=== PATIENT | female | born 1970 | race Caucasian/White ===

== ENCOUNTER 2016-10-05 21:40 | Emergency (ER) | payer BC ==
--- NOTE | 2016-10-05 22:32 | EDM.PDOC ---
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 She felt shaky she felt lightheaded. She had some chest pain that she thinks was related to low blood sugar. She candied bar and now she feels improved. She has had prior episodes in the past associated with blood sugars in the 50s. She has a relative that is a diabetic and has access to home blood sugar monitoring. She refuses fingerstick blood sugar checked today. She's starting to feel quite a bit better. - Related Data Allergies/ADRs: Allergies Allergy/AdvReac Type Severity Reaction Status Date / Time influenza virus vaccine, Allergy Other Verified 03/17/15 12:26 specific [influenza virus vacc,specific] promethazine HCl Allergy Seizure Verified 03/17/15 12:26 [From Phenergan] shellfish derived Allergy Itching Verified 10/05/16 21:44 IV Contrast from years ago Allergy Intermediate Cannot Uncoded 03/17/15 12:26 Remember Tomato Allergy Unknown Difficulty Uncoded 03/17/15 12:26 Breathing Home Meds: Home Meds Levothyroxine Sodium 0.25 gm MC DAILY 10/05/16 [History] Omeprazole 40 mg PO DAILY 10/05/16 [History] Past Medical History - Past Health History Medical/Surgical History: Denies Medical/Surgical History HEENT History: Reports: None Cardiovascular History: Reports: None Respiratory History: Reports: Other (see below) Other Respiratory History: exercise induced breathing problems Gastrointestinal History: Reports: GERD Genitourinary History: Reports: None 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 Musculoskeletal History: Reports: Fibromyalgia Neurological History: Reports: None Psychiatric History: Reports: None Endocrine/Metabolic History: Reports: Hyperthyroidism, Hypothyroidism Other Endocrine/Metabolic History: Goiter Hematologic History: Reports: None Immunologic History: Reports: None Oncologic (Cancer) History: Reports: None Dermatologic History: Reports: None - Infectious Disease History Infectious Disease History: Reports: Chicken pox - Past Surgical History HEENT Surgical History: Reports: None GI Surgical History: Reports: Cholecystectomy Female Surgical History: Reports: D&C Social & Family History - Family History Cardiac: Reports: MT - Tobacco Use Smoking Status *Q: Never Smoker Second Hand Smoke Exposure: No - Caffeine Use Caffeine Use: Reports: Soda Other Caffeine Use: rare - Alcohol Use Days Per Week of Alcohol Use: 0 Number of Drinks Per Day: 0 Total Drinks Per Week: 0 - Recreational Drug Use Recreational Drug Use: No Drug Use in Last 12 Months: No ED ROS GENERAL - Review of Systems Review Of Systems: See Below Constitutional: Denies: fever, chills Respiratory: Reports: shortness of breath (Shortness of breath and shakiness now resolved) Cardiovascular: Reports: Chest pain (Chest pain was central but is now resolved) GI/Abdominal: Denies: Abdominal pain ED EXAM, GENERAL - Physical Exam Exam: See Below (She is) Free Text/Narrative:: She is alert with nontoxic appearance she is cooperative her speech is normal she is anxious appearing lungs are clear to auscultation heart regular rate and rhythm without murmur abdomen is nontender normal capillary refill in her feet. Electrocardiogram 12-lead shows normal sinus rhythm. There are no ST segment changes suggestive of myocardial ischemia. She has nonspecific ST changes noted in V2 and V3. Course - Vital Signs Last Recorded V/S: Last Vital Signs Temp 97.5 F 10/06/16 01:53 Pulse 64 10/06/16 01:53 Resp 17 10/06/16 01:53 BP 120/61 10/06/16 01:53 Pulse Ox 95 10/06/16 01:53 - Orders/Labs/Meds Orders: Active Orders 24 hr Category Date Time Status EKG 12 Lead [EKG Documentation Completion] [RC] STAT Care 10/05/16 21:53 Active Labs: Laboratory Tests 10/05/16 10/05/16 10/05/16 Range/Units 21:56 21:56 21:56 WBC 11.36 H (4.0-11.0) K/uL RBC 4.95 (4.30-5.90) M/uL Hgb 14.3 (12.0-16.0) g/dL Hct 42.2 (36.0-46.0) % MCV 85.3 (80.0-98.0) fL MCH 28.9 (27.0-32.0) pg MCHC 33.9 (31.0-37.0) g/dL RDW Std Deviation 39.6 (28.0-62.0) fl RDW Coeff of Jazzy 13 (11.0-15.0) % Plt Count 357 (150-400) K/uL MPV 9.90 (7.40-12.00) fL Neut % (Auto) 54.7 (48.0-80.0) % Lymph % (Auto) 32.8 (16.0-40.0) % Chase % (Auto) 10.0 (0.0-15.0) % Eos % (Auto) 2.0 (0.0-7.0) % Baso % (Auto) 0.5 (0.0-1.5) % Neut # 6.2 H (1.4-5.7) K/uL Lymph # 3.7 H (0.6-2.4) K/uL Chase # 1.1 H (0.0-0.8) K/uL Eos # 0.2 (0.0-0.7) K/uL Baso # 0.1 (0.0-0.1) K/uL Nucleated RBC % 0.0 /100WBC Nucleated RBCs # 0 K/uL Sodium (136-146) mmol/L Potassium (3.5-5.1) mmol/L Chloride (98-110) mmol/L Carbon Dioxide (21-31) mmol/L BUN (6.0-23.0) mg/dL Creatinine (0.6-1.5) mg/dL Est Cr Clr Drug Dosing mL/min Estimated GFR (MDRD) ml/min Glucose (60-110) mg/dL Calcium (8.8-10.8) mg/dL Total Bilirubin (0.1-1.5) mg/dL AST (5-40) IU/L ALT (8-54) IU/L Alkaline Phosphatase (40-150) Troponin I < 0.10 (0.0-0.29) NG/ML Total Protein (6.0-8.0) g/dL Albumin (3.5-5.0) g/dL Globulin (2.0-3.5) g/dL Albumin/Globulin Ratio (1.3-2.8) HCG, Qual NEGATIVE (NEG) Urine Color Urine Appearance Urine pH (5.0-8.0) Ur Specific Wylie (1.001-1.035) Urine Protein (NEGATIVE) mg/dL Urine Glucose (UA) (NEGATIVE) mg/dL Urine Ketones (NEGATIVE) mg/dL Urine Occult Blood (NEGATIVE) Urine Nitrite (NEGATIVE) Urine Bilirubin (NEGATIVE) Urine Urobilinogen (<2.0) EU/dL Ur Leukocyte Esterase (NEGATIVE) Urine RBC (0-2/HPF) Urine WBC (0-5/HPF) Ur Epithelial Cells (NONE-FEW) Urine Bacteria (NEGATIVE) 10/05/16 10/05/16 10/06/16 Range/Units 21:59 22:28 03:09 WBC (4.0-11.0) K/uL RBC (4.30-5.90) M/uL Hgb (12.0-16.0) g/dL Hct (36.0-46.0) % MCV (80.0-98.0) fL MCH (27.0-32.0) pg MCHC (31.0-37.0) g/dL RDW Std Deviation (28.0-62.0) fl RDW Coeff of Jazzy (11.0-15.0) % Plt Count (150-400) K/uL MPV (7.40-12.00) fL Neut % (Auto) (48.0-80.0) % Lymph % (Auto) (16.0-40.0) % Chase % (Auto) (0.0-15.0) % Eos % (Auto) (0.0-7.0) % Baso % (Auto) (0.0-1.5) % Neut # (1.4-5.7) K/uL Lymph # (0.6-2.4) K/uL Chase # (0.0-0.8) K/uL Eos # (0.0-0.7) K/uL Baso # (0.0-0.1) K/uL Nucleated RBC % /100WBC Nucleated RBCs # K/uL Sodium 139 (136-146) mmol/L Potassium 4.0 (3.5-5.1) mmol/L Chloride 108 (98-110) mmol/L Carbon Dioxide 24 (21-31) mmol/L BUN 5 L (6.0-23.0) mg/dL Creatinine 0.7 (0.6-1.5) mg/dL Est Cr Clr Drug Dosing 95.01 mL/min Estimated GFR (MDRD) > 60.0 ml/min Glucose 99 (60-110) mg/dL Calcium 8.6 L (8.8-10.8) mg/dL Total Bilirubin 0.5 (0.1-1.5) mg/dL AST 17 (5-40) IU/L ALT 19 (8-54) IU/L Alkaline Phosphatase 89 (40-150) Troponin I < 0.10 (0.0-0.29) NG/ML Total Protein 6.6 (6.0-8.0) g/dL Albumin 3.9 (3.5-5.0) g/dL Globulin 2.7 (2.0-3.5) g/dL Albumin/Globulin Ratio 1.4 (1.3-2.8) HCG, Qual (NEG) Urine Color YELLOW Urine Appearance CLEAR Urine pH 7.5 (5.0-8.0) Ur Specific Wylie 1.010 (1.001-1.035) Urine Protein NEGATIVE (NEGATIVE) mg/dL Urine Glucose (UA) NEGATIVE (NEGATIVE) mg/dL Urine Ketones NEGATIVE (NEGATIVE) mg/dL Urine Occult Blood NEGATIVE (NEGATIVE) Urine Nitrite NEGATIVE (NEGATIVE) Urine Bilirubin NEGATIVE (NEGATIVE) Urine Urobilinogen 0.2 (<2.0) EU/dL Ur Leukocyte Esterase NEGATIVE (NEGATIVE) Urine RBC 0-2 (0-2/HPF) Urine WBC 0-2 (0-5/HPF) Ur Epithelial Cells RARE (NONE-FEW) Urine Bacteria RARE (NEGATIVE) - Re-Assessments/Exams Free Text/Narrative Re-Assessment/Exam: 10/06/16 03:28 He feels much better repeat troponin level is normal Departure - Departure Time of Disposition: 03:29 Disposition: Home, Self-Care 01 Clinical Impression: Hypoglycemia Forms: ED Department Discharge Additional Instructions: We discussed dietary measures to avoid hypoglycemia recheck as needed - My Orders Last 24 Hours: My Active Orders 10/05/16 21:53 EKG 12 Lead [EKG Documentation Completion] [RC] STAT - Assessment/Plan Last 24 Hours: My Active Orders 10/05/16 21:53 EKG 12 Lead [EKG Documentation Completion] [RC] STAT
[2016-10-05 23:00] LABS: CHLORIDE,CL 108 mmol/L (98-110); SODIUM,NA 139 mmol/L (136-146)
[2016-10-06 03:50] VITALS: BP 120/67
== END 2016-10-06 03:40 | disposition home or self-care (01) ==
LOC: MW.ED 21:40
DX: E16.2 Hypoglycemia, unspecified (principal); K21.9 Gastro-esophageal reflux disease without esophagitis; E03.9 Hypothyroidism, unspecified; Z91.041 Radiographic dye allergy status; Z88.7 Allergy status to serum and vaccine; Z79.899 Other long term (current) drug therapy; Z90.89 Acquired absence of other organs
CPT/HCPCS: 36415; 80053; 81001; 84484; 84703; 85025; 93005; 99283; 99284-25

== ENCOUNTER → 2016-10-28 | Outpatient (CLI) | payer BC ==
--- NOTE | 2016-10-28 14:27 | CT ---
CT of the abdomen and pelvis without contrast. HISTORY: Pain TECHNIQUE: Axial CT images were obtained of the abdomen and pelvis without contrast. Coronal and sag ittal reconstructions obtained. FINDINGS: The lung bases are clear, no pleural effusion. Bibasilar atelectasis is noted. The liver, spleen, adrenal glands, and pancreas appear unremarkable for noncontrast examination. Cho lecystectomy clips are noted. There is no bulky retroperitoneal lymphadenopathy. No abdominal ascite s. There is a 3 mm nonobstructing stone within the left kidney. No evidence of obstructive uropathy shalini aterally. The large and small bowel are normal in caliber without evidence of obstruction. The appendix appear s normal. There are a few scattered diverticula without evidence of diverticulitis. There is no bul ky pelvic lymphadenopathy. No free fluid. No free air. The urinary bladder appears normal. The visualized osseous structures appear normal. IMPRESSION: 1. No acute findings within the abdomen or pelvis. 2. Minimal diverticulosis without evidence of diverticulitis. 3. Single nonobstructing left renal calculus. 4. Cholecystectomy.
== END ==
LOC: MW.DI 11:11
PROVIDERS: ATTEND Family Medicine
DX: R10.84 Generalized abdominal pain (principal); R19.4 Change in bowel habit; K57.90 Diverticulosis of intestine, part unspecified, without perforation or abscess without bleeding; N20.0 Calculus of kidney; Z90.49 Acquired absence of other specified parts of digestive tract
CPT/HCPCS: 74176; 74176-26

== ENCOUNTER 2017-06-20 22:33 | Observation (INO) | payer BC ==
[2017-06-20] MEDS ORDERED: Sodium Chloride 0.9% 2.5 ML Syringe FLUSH PRN (22:49)
[2017-06-20] MEDS ORDERED: Sodium Chloride 0.9% 10 ML Syringe FLUSH PRN (22:49)
[2017-06-20] MEDS ORDERED: Aspirin 81 MG Tab.Chew PO ONE (22:49)
--- NOTE | 2017-06-20 22:53 | EDM.PDOC ---
ED HPI GENERAL MEDICAL PROBLEM - General Chief Complaint: Respiratory Problem Stated Complaint: CHEST PAIN Time Seen by Provider: 06/20/17 22:43 - History of Present Illness INITIAL COMMENTS - FREE TEXT/NARRATIVE: HISTORY AND PHYSICAL: History of present illness: The patient is a 46-year-old female with a history of fibromyalgia and Cornelia 's thyroiditis that is in remission who presents with complaints of bilateral chest pressure that started at 4:30 PM. Patient had a complete normal day today without any systemic complaints and was resting when this started. It does not localize right or left and it does not radiate. She did not get diaphoretic had no nausea no abdominal pain vomiting or diarrhea. Patient says she had a stress test 3 years ago that was normal and this was performed when she had her thyroid problems. Patient follows at [facility]. The patient does not smoke or have any drug use. Patient says that her father had his first heart attack in his 40s. Patient did not take any medication prior to coming here. The patient currently rates the pain as a 4/10 but is more pressure-like. Patient has no leg pain or swelling. Patient does not feel short of breath here in the ER Review of systems: As per history of present illness and below otherwise all systems reviewed and negative. Past medical history: As per history of present illness and as reviewed below otherwise noncontributory. Surgical history: As per history of present illness and as reviewed below otherwise noncontributory. Social history: No reported history of drug or alcohol abuse. Family history: As per history of present illness and as reviewed below otherwise noncontributory. Physical exam: Gen.: Well-developed well-nourished female who is nontoxic and speaking clearly and easily in the ED. Vital signs were noted by me HEENT: Atraumatic, normocephalic, pupils reactive, negative for conjunctival pallor or scleral icterus, mucous membranes moist, throat clear, neck supple, nontender, trachea midline. No thyromegaly no cervical adenopathy Lungs: Clear to auscultation, breath sounds equal bilaterally, chest nontender. Heart: S1S2, regular rate and rhythm no overt murmurs. Abdomen: Soft, nondistended, nontender. Negative for masses or hepatosplenomegaly. Negative for costovertebral tenderness. Pelvis: Stable nontender. Genitourinary: Deferred. Rectal: Deferred. Extremities: Atraumatic, negative for cords or calf pain. Neurovascular unremarkable. No pedal edema or leg asymmetry Neuro: Awake, alert, oriented. Cranial nerves II through XII unremarkable. Cerebellum unremarkable. Motor and sensory unremarkable throughout. Exam nonfocal. Diagnostics: EKG chest x-ray CBC CMP d-dimer INR troponin Protonix Therapeutics: IV O2 monitor aspirin nitroglycerin sublingual, nitroglycerin paste, morphine After 3 sublingual nitroglycerin glycerin the patient's chest pain is now a 2/ 10. We will place Nitropaste and give a dose of morphine and reevaluate. Patient states that now her chest discomfort and pressure is pretty much gone and she feels some upper abdominal discomfort. When I palpate again it is soft and nontender. She says that she does take omeprazole and she does have some component of reflux. I offered her a GI cocktail which she refuses. I will give her dose of Protonix. I discussed with her admission for observation considering her family history and her chest pain and she is agreeable. 0002: Case was discussed with Dr. Cook and he agrees with observation admission. Impression: Chest pain Definitive disposition and diagnosis as appropriate pending reevaluation and review of above. chest Pain Score (Numeric/FACES): 5 - Related Data Allergies Allergy/AdvReac Type Severity Reaction Status Date / Time promethazine [From Phenergan] Allergy Seizure Verified 06/20/17 22:39 DYE Allergy Cannot Uncoded 06/20/17 22:39 Remember FLU SHOT Allergy Fever Uncoded 06/20/17 22:39 Home Meds: Home Meds Hi-Po 06/20/17 [History] Levothyroxine 25 mcg PO ACBREAKFAST 06/20/17 [History] Naltrexone 0.5 mg PO BEDTIME 06/20/17 [History] Omeprazole 40 mg PO DAILY 06/20/17 [History] Pregnenolone, Micronized [Pregnenolone] 0 gm MC TID 06/20/17 [History] Social & Family History - Tobacco Use Smoking Status *Q: Never Smoker - Recreational Drug Use Recreational Drug Use: No ED ROS GENERAL - Review of Systems Review Of Systems: ROS reveals no pertinent complaints other than HPI. ED EXAM, GENERAL - Physical Exam Exam: See Below (See dictation) Course - Vital Signs Last Recorded V/S: Last Vital Signs Temp 36.4 C 11/13/17 22:33 Pulse 77 06/20/17 23:40 Resp 18 06/20/17 23:40 BP 126/66 06/20/17 23:40 Pulse Ox 97 06/20/17 22:33 - Orders/Labs/Meds Orders: Active Orders 24 hr Category Date Time Status Cardiac Monitoring [RC] . DIRECTED Care 06/20/17 22:48 Active Oxygen Therapy, ED [RC] ASDIRECTED Care 06/20/17 22:48 Active Pulse Oximetry [RC] ASDIRECTED Care 06/20/17 22:48 Active Chest 1V Frontal [CR] Stat Exams 06/20/17 22:49 Taken Sodium Chloride 0.9% [Saline Flush] Med 06/20/17 22:49 Active 10 ml FLUSH ASDIRECTED PRN Sodium Chloride 0.9% [Saline Flush] Med 06/20/17 22:49 Active 2.5 ml FLUSH ASDIRECTED PRN Saline Lock Insert [OM.PC] Stat Oth 06/20/17 22:48 Ordered Medication Orders Sodium Chloride (Saline Flush) 10 ml FLUSH ASDIRECTED PRN PRN Reason: Keep Vein Open Last Admin: 06/20/17 23:03 Dose: 10 ml Sodium Chloride (Saline Flush) 2.5 ml FLUSH ASDIRECTED PRN PRN Reason: Keep Vein Open Last Admin: 06/20/17 23:03 Dose: 2.5 ml Labs: Laboratory Tests 06/20/17 06/20/17 06/20/17 Range/Units 22:45 22:45 23:11 WBC 11.12 H (4.0-11.0) K/uL RBC 5.04 (4.30-5.90) M/uL Hgb 14.9 (12.0-16.0) g/dL Hct 43.3 (36.0-46.0) % MCV 85.9 (80.0-98.0) fL MCH 29.6 (27.0-32.0) pg MCHC 34.4 (31.0-37.0) g/dL RDW Std Deviation 39.5 (28.0-62.0) fl RDW Coeff of Jazzy 13 (11.0-15.0) % Plt Count 310 (150-400) K/uL MPV 9.70 (7.40-12.00) fL Neut % (Auto) 55.4 (48.0-80.0) % Lymph % (Auto) 33.7 (16.0-40.0) % [place]ountain % (Auto) 8.7 (0.0-15.0) % Eos % (Auto) 1.7 (0.0-7.0) % Baso % (Auto) 0.5 (0.0-1.5) % Neut # (Auto) 6.2 H (1.4-5.7) K/uL Lymph # (Auto) 3.8 H (0.6-2.4) K/uL Fountain # (Auto) 1.0 H (0.0-0.8) K/uL Eos # (Auto) 0.2 (0.0-0.7) K/uL Baso # (Auto) 0.1 (0.0-0.1) K/uL Nucleated RBC % 0.0 /100WBC Nucleated RBCs # 0 K/uL INR 1.07 (0.86-1.11) D-Dimer, Quantitative < 0.19 (0.0-0.52) mg/LFEU Sodium 141 (136-146) mmol/L Potassium 4.0 (3.5-5.1) mmol/L Chloride 106 (98-110) mmol/L Carbon Dioxide 24 (21-31) mmol/L BUN 5 L (6.0-23.0) mg/dL Creatinine 0.7 (0.6-1.5) mg/dL Est Cr Clr Drug Dosing TNP Estimated GFR (MDRD) > 60.0 ml/min Glucose 93 (60-110) mg/dL Calcium 9.5 (8.8-10.8) mg/dL Total Bilirubin 0.5 (0.1-1.5) mg/dL AST 21 (5-40) IU/L ALT 21 (8-54) IU/L Alkaline Phosphatase 97 (40-150) Troponin I < 0.10 (0.0-0.29) NG/ML Total Protein 7.5 (6.0-8.0) g/dL Albumin 4.4 (3.5-5.0) g/dL Globulin 3.1 (2.0-3.5) g/dL Albumin/Globulin Ratio 1.4 (1.3-2.8) Meds: Medications Generic Name Dose Route Start Last Admin Trade Name Estebanq PRN Reason Stop Dose Admin Sodium Chloride 10 ml 06/20/17 22:49 06/20/17 23:03 Saline Flush FLUSH 10 ml ASDIRECTED PRN Administration Keep Vein Open Sodium Chloride 2.5 ml 06/20/17 22:49 06/20/17 23:03 Saline Flush FLUSH 2.5 ml ASDIRECTED PRN Administration Keep Vein Open Discontinued Medications Generic Name Dose Route Start Last Admin Trade Name Angel PRN Reason Stop Dose Admin Aspirin 324 mg 06/20/17 22:49 06/20/17 23:00 Aspirin PO 06/20/17 22:50 324 mg ONETIME ONE Administration Morphine Sulfate 2 mg 06/20/17 23:31 06/20/17 23:38 Morphine IVPUSH 06/20/17 23:32 2 mg ONETIME ONE Administration Nitroglycerin 0.4 mg 06/20/17 23:00 06/20/17 23:15 Nitrostat SL 06/20/17 23:11 0.4 mg Q5M SANJAY Administration Nitroglycerin 0.5 gm 06/20/17 23:31 06/20/17 23:39 Nitro-Bid 2% TOP 06/20/17 23:32 0.5 gm ONETIME ONE Administration Pantoprazole Sodium 40 mg 06/20/17 23:57 Protonix Iv IVPUSH 06/20/17 23:58 NOW ONE Departure - Departure Time of Disposition: 00:05 Disposition: Refer to Observation Condition: Good Clinical Impression: Chest pain Qualifiers: Chest pain type: unspecified Qualified Code(s): R07.9 - Chest pain, unspecified - Discharge Information Referrals: PCP,None [Primary Care Provider] - Forms: ED Department Discharge - My Orders Last 24 Hours: My Active Orders 06/20/17 22:48 Cardiac Monitoring [RC] . DIRECTED Oxygen Therapy, ED [RC] ASDIRECTED Pulse Oximetry [RC] ASDIRECTED Saline Lock Insert [OM.PC] Stat 06/20/17 22:49 Chest 1V Frontal [CR] Stat Sodium Chloride 0.9% [Saline Flush] 10 ml FLUSH ASDIRECTED PRN Sodium Chloride 0.9% [Saline Flush] 2.5 ml FLUSH ASDIRECTED PRN - Assessment/Plan Last 24 Hours: My Active Orders 06/20/17 22:48 Cardiac Monitoring [RC] . DIRECTED Oxygen Therapy, ED [RC] ASDIRECTED Pulse Oximetry [RC] ASDIRECTED Saline Lock Insert [OM.PC] Stat 06/20/17 22:49 Chest 1V Frontal [CR] Stat Sodium Chloride 0.9% [Saline Flush] 10 ml FLUSH ASDIRECTED PRN Sodium Chloride 0.9% [Saline Flush] 2.5 ml FLUSH ASDIRECTED PRN
[2017-06-20] MEDS: Nitroglycerin 0.4 MG Tab.SL SL SCH ×3 (23:01→23:15)
[2017-06-20] MEDS ORDERED: Morphine 2 MG/ML Syringe IVPUSH ONE (23:31)
[2017-06-20] MEDS ORDERED: Nitroglycerin 2% Oint 1 GM UD Packet TOP ONE (23:31)
[2017-06-20 23:33] LABS: CHLORIDE,CL 106 mmol/L (98-110); SODIUM,NA 141 mmol/L (136-146)
[2017-06-20] MEDS ORDERED: Pantoprazole 40 MG Vial IVPUSH ONE (23:57)
[2017-06-21] MEDS ORDERED: Morphine 4 MG/ML Syringe IVPUSH PRN (02:30)
[2017-06-21] MEDS ORDERED: Ondansetron 4 MG/2 ML SDV IVPUSH PRN (02:30)
[2017-06-21] MEDS ORDERED: Acetaminophen 500 MG Tab PO PRN ×2 (02:30→11:03)
[2017-06-21] MEDS ORDERED: Nitroglycerin 2% Oint 1 GM UD Packet TOP SCH (06:00)
[2017-06-21] MEDS ORDERED: Pantoprazole 40 MG Tab.CR PO SCH (07:30)
[2017-06-21] MEDS ORDERED: Levothyroxine 25 MCG Tab PO SCH (07:30)
--- NOTE | 2017-06-21 11:09 | PCM.HP ---
H&P History of Present Illness - General Date of Service: 06/21/17 Admit Problem/Dx: Admission Diagnosis/Problem Admission Diagnosis/Problem Chest pain Source of Information: Patient History Limitations: Reports: No Limitations - History of Present Illness Initial Comments - Free Text/Narative: This 46 year old with pmh of fibromyalgia, Hashimotos thyroiditis( in remission ) presented to the ED last evening with bilateral chest pressure, which included face and neck. She reports the pain started around 4:30 pm at work. She had an otherwise normal day. She reports some SOB with the event and she was at rest when it started. She denies diaphoresis or radiation and she is unable to pinpoint an area, she moves her hands over her top chest to her neck and face. She denies fevers, recent URI, sore throat, sinus congestion, coughing , GERD, N/V, abdominal pain or urinary symptoms. She denies alcohol or tobacco use. She reports her father had mutliple MIs, first one when she was a teenager , so he was in his 40s. She denies CAD, or DM personally. She had a stress test approximately 3 years ago, which she reports was negative. In the ED Labwork WNL. Troponin was negative. EKG SR with to ST segment changes. CXR negative. She was given 3 nitro SL with pain relieved. She was also given Morphine and Nitro paste placed She was admitted for chest pain R/O ACS. PCP, Dr Crawford. chest Pain Score (Numeric/FACES): 3 Headache Pain Score (Numeric/FACES): 8 - Related Data Allergies/Adverse Reactions: Allergies Allergy/AdvReac Type Severity Reaction Status Date / Time shellfish derived Allergy Severe Anaphylactic Verified 06/21/17 01:50 Shock tomato Allergy Severe Anaphylactic Verified 06/21/17 01:50 Shock promethazine [From Phenergan] Allergy Seizure Verified 06/20/17 22:39 DYE Allergy Cannot Uncoded 06/20/17 22:39 Remember FLU SHOT Allergy Fever Uncoded 06/20/17 22:39 Home Medications: Home Meds Hi-Po 06/20/17 [History] Levothyroxine 25 mcg PO ACBREAKFAST 06/20/17 [History] Naltrexone 0.5 mg PO BEDTIME 06/20/17 [History] Omeprazole 40 mg PO DAILY 06/20/17 [History] Pregnenolone, Micronized [Pregnenolone] 0 gm MC TID 06/20/17 [History] Past Medical History Cardiovascular History: Denies: Afib, Blood Clots/VTE/DVT, High Cholesterol, Hypertension, [place] Respiratory History: Denies: Asthma, COPD, PE Gastrointestinal History: Reports: GERD, Hiatal Hernia 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 Denies: Diabetes, Type II Other Endocrine/Metabolic History: fuentes - Infectious Disease History Infectious Disease History: Reports: Chicken Pox Social & Family History - Family History Family Medical History: Noncontributory - Tobacco Use Smoking Status *Q: Never Smoker Second Hand Smoke Exposure: No - Caffeine Use Caffeine Use: Reports: Soda - Recreational Drug Use Recreational Drug Use: No H&P Review of Systems - Review of Systems: Review Of Systems: See Below General: Reports: No Symptoms. Denies: Fever, Chills, Malaise HEENT: Reports: Headaches (this morning.). Denies: Contact Lenses, Sinus Congestion, Sore Throat, Vertigo Pulmonary: Denies: Shortness of Breath, Wheezing, Cough, Sputum Cardiovascular: Reports: Chest Pain (mid sternal, light pressure now. improved from when it first started. No pain to palpation of chest wall. ). Denies: Edema Gastrointestinal: Reports: No Symptoms. Denies: Abdominal Pain, Black Stool, Bloody Stool, Constipation, Diarrhea, Nausea, Vomiting Genitourinary: Reports: No Symptoms. Denies: Dysuria, Frequency, Burning Neurological: Reports: No Symptoms. Denies: Confusion Exam - Exam Exam: See Below - Vital Signs Vital Signs: Last Vital Signs Temp 98.2 F 06/21/17 07:20 Pulse 71 06/21/17 07:20 Resp 16 06/21/17 07:20 BP 109/64 06/21/17 07:20 Pulse Ox 97 06/21/17 07:20 Weight: 105 kg - Exam General: Alert, Oriented, Cooperative HEENT: Conjunctiva Clear, Hearing Intact, Mucosa Moist & [place], Pupils Reactive, Other (has headache, nitro paste removed this morning. ) Neck: Supple, Trachea Midline, Full Range of Motion. No: Lymphadenopathy Lungs: Clear to Auscultation, Normal Respiratory Effort Cardiovascular: Regular Rate, Regular Rhythm, Other (no chest wall tenderness noted.) Extremities: Normal Inspection, Normal Range of Motion, Non-Tender, No Pedal Edema, Normal Capillary Refill Neuro Extensive - Mental Status: Alert, Oriented x3, Normal Mood/Affect, Normal Cognition Neuro Extensive - Motor, Sensory, Reflexes: CN II-XII Intact, Normal Gait Psychiatric: Alert, Normal Affect, Normal Mood - Patient Data Lab Results Last 24 hrs: Laboratory Results - last 24 hr 06/21/17 06/21/17 06/21/17 Range/Units 05:16 05:16 05:16 Hemoglobin A1c 5.1 (0.0-6.0) % Troponin I < 0.10 (0.0-0.29) NG/ML Triglycerides 69 (10-190) mg/dL Cholesterol 169 (131-240) mg/dL LDL Cholesterol, Calc 107 (60-180) mg/dL VLDL Cholesterol 14 (5-55) mg/dL HDL Cholesterol 48 (40-80) mg/dL Cholesterol/HDL Ratio 3.5 (3.3-6.0) Result Diagrams: 06/20/17 22:45 06/20/17 22:45 EKG INTERPRETATION EKG Date: 06/20/17 Rhythm: NSR Rate (Beats/Min): 67 Lutz: Normal P-Wave: Present QRS: Normal ST-T: Normal QT: Normal *Q Meaningful Use (ADM) - VTE *Q VTE Criteria *Q: - Stroke *Q Stroke Criteria *Q: - AMI *Q AMI Criteria *Q: - Problem List (1) Chest pain SNOMED Code(s): 89542103 ICD Code: R07.9 - CHEST PAIN, UNSPECIFIED Status: Acute Current Visit: Yes Qualifiers: Chest pain type: unspecified Qualified Code(s): R07.9 - Chest pain, unspecified Problem List Initiated/Reviewed/Updated: Yes Orders Last 24hrs: Active Orders 24 hr Category Date Time Status Communication Order [RC] PRN Care 06/21/17 08:15 Active Telemetry Monitoring [Cardiac Monitoring] [RC] Q8H Care 06/21/17 00:12 Active Heart Healthy Diet [DIET] Diet 06/21/17 Breakfast Active TROPONIN I [CHEM] Q6H Lab 06/21/17 10:55 Received Acetaminophen [Tylenol Extra Strength] Med 06/21/17 11:03 Ordered 1,000 mg PO Q4H PRN Levothyroxine Med 06/21/17 07:30 Active 25 mcg PO ACBREAKFAST Morphine Med 06/21/17 02:30 Active 4 mg IVPUSH Q2H PRN Ondansetron [Zofran] Med 06/21/17 02:30 Active 4 mg IVPUSH Q4H PRN Pantoprazole [ProTONIX] Med 06/21/17 07:30 Active 40 mg PO ACBREAKFAST Medication Orders Acetaminophen (Tylenol Extra Strength) 1,000 mg PO Q4H PRN PRN Reason: Pain (mild 1-3) Levothyroxine Sodium (Levothyroxine) 25 mcg PO ACBREAKFAST SANJAY Last Admin: 06/21/17 07:40 Dose: 25 mcg Morphine Sulfate (Morphine) 4 mg IVPUSH Q2H PRN PRN Reason: Pain (severe 7-10) Ondansetron HCl (Zofran) 4 mg IVPUSH Q4H PRN PRN Reason: Nausea/Vomiting Pantoprazole Sodium (Protonix) 40 mg PO ACBREAKFAST SANJAY Last Admin: 06/21/17 07:40 Dose: 40 mg Sodium Chloride (Saline Flush) 10 ml FLUSH ASDIRECTED PRN PRN Reason: Keep Vein Open Last Admin: 06/20/17 23:03 Dose: 10 ml Sodium Chloride (Saline Flush) 2.5 ml FLUSH ASDIRECTED PRN PRN Reason: Keep Vein Open Last Admin: 06/20/17 23:03 Dose: 2.5 ml Assessment/Plan Comment:: This 46 year old female admitted with chest pain R/O ACS 1. Chest pain: telemetry SR with no ST segment changes. No chest pain. Feeling dizz with headache now. Nitro was removed and given tylenol. She is not having chest pain and all troponins negative. A1c 5.1 LDL 107, HDL 48, Triglycerides 69 and total 169 Discharge plan: She will be discharged today with follow up with PCP, in 1 week. ACS ruled out but with family history will arrange outpatient stress test. She is to refrain from strenuous activity until after stress test, work release given. She is to return to ED or clinic if concerns should arise.
--- NOTE | 2017-06-21 11:28 | CR ---
EXAM DATE: 06/21/17 PATIENT'S AGE: 46 Patient: CHELO VASQUEZ Facility: [place], [place] Site . Site : [id number] Study: XRay Chest [id number] 11:26:55 PM Ordering Physician: Berenice Danielle Final Report: Indication: Chest pain, shortness of breath Technique: Chest 1 view Comparison: None Findings/Impression: Cardiovascular and mediastinum: Heart size and vasculature are normal in caliber and appearance. Mediastinum is within normal limits. Lungs and pleural space: Lungs are clear. No sign of infiltrate or mass. No sign of pleural effusion. No pneumothorax. Bones and soft tissues: No significant findings. Dictated by Christine Ivey MD @ Jun 20 2017 11:32PM (Electronic Signature) Report Signed by Proxy. [facility]ITAL[facility]ama
[2017-06-21 12:08] VITALS: BP 124/81
== END 2017-06-21 13:40 | disposition home or self-care (01) ==
LOC: MW.ED 22:33 → MW.MS 06-21 00:06 → MERGE 06-21 00:06
PROVIDERS: ADMIT Family Medicine; ATTEND Family Medicine
DX: R07.89 Other chest pain (principal); R06.02 Shortness of breath; E03.9 Hypothyroidism, unspecified; K21.9 Gastro-esophageal reflux disease without esophagitis; K44.9 Diaphragmatic hernia without obstruction or gangrene; M79.7 Fibromyalgia; E06.3 Autoimmune thyroiditis; E66.9 Obesity, unspecified; Z68.37 Body mass index [BMI] 37.0-37.9, adult; Z91.041 Radiographic dye allergy status; Z91.013 Allergy to seafood; Z91.018 Allergy to other foods; Z88.7 Allergy status to serum and vaccine; Z88.8 Allergy status to other drugs, medicaments and biological substances; Z79.899 Other long term (current) drug therapy
CPT/HCPCS: 36415; 71010; 80053; 80061; 83036; 84484; 85025; 85379; 85610; 96374; 96375; 99285; A9270; C9113; G0378; J2270; 99283

== ENCOUNTER 2020-02-29 13:03 | Observation (INO) | payer BC, OTHER ==
[2020-02-29] MEDS ORDERED: Sodium Chloride 0.9% 2.5 ML Syringe FLUSH PRN (14:13)
[2020-02-29] MEDS ORDERED: Sodium Chloride 0.9% 10 ML Syringe FLUSH PRN (14:13)
--- NOTE | 2020-02-29 14:21 | EDM.PDOC ---
ED HPI GENERAL MEDICAL PROBLEM - General Chief Complaint: General Stated Complaint: light headed Time Seen by Provider: 02/29/20 13:04 Source of Information: Reports: Patient History Limitations: Reports: No Limitations - History of Present Illness INITIAL COMMENTS - FREE TEXT/NARRATIVE: 49-year-old female with history of hypothyroidism and fibromyalgia presents with acute onset palpitation around noon. 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 Her Fitbit registered her tachycardia lasting for about 1 hour. She was dizzy, had left- sided chest pressure, malaise, diffuse myalgia. She also had one episode of diarrhea. 5 days ago she removed a tick bite from behind her left knee. She denies fever, chills, GÓMEZ, neck pain. ROS: A 10-point review of systems, other than pertinent positives and negatives as stated per HPI, is otherwise negative Past medical history: No additional pertinent history Past Surgical history: No additional pertinent history Social history: No additional pertinent history Family history: No additional pertinent history PHYSICAL EXAM General: AOx4, GCS = 15, No distress HEENT: dry mucous membrane Neck: supple, no meningismus, no Kernig or Brudzinski Cardiac: S1S2 RRR Respiratory: CTAB, no crackles or rales, no wheezing Abdomen: Soft, nontender, no rebound or guarding, nondistended, no pulsatile mass. Back: nontender Skin: 1cm tick bike shadia behind left kne with localized erythema, no induration, no fluctuance, no bullseye lesion, Musculoskeletal: NVI distally, no deformity Neuro: No focal deficits general Pain Score (Numeric/FACES): 8 - Related Data Allergies Allergy/AdvReac Type Severity Reaction Status Date / Time tomato Allergy Severe Anaphylactic Verified 02/29/20 17:39 Shock influenza virus vaccine, Allergy Other Verified 02/29/20 17:39 specific [influenza virus vacc,specific] promethazine [From Phenergan] Allergy Seizure Verified 02/29/20 17:39 promethazine HCl Allergy Seizure Verified 02/29/20 17:39 [From Phenergan] shellfish derived Allergy Itching Verified 02/29/20 17:39 IV Contrast from years ago Allergy Intermediate Cannot Uncoded 02/29/20 17:39 Remember Home Meds: Home Meds Naltrexone 4 mg PO BEDTIME 06/20/17 [History] Doxycycline [Vibramycin] 100 mg PO Q12HR 14 Days #28 cap 03/01/20 [Rx] Past Medical History - Past Health History Medical/Surgical History: Denies Medical/Surgical History HEENT History: Reports: None Cardiovascular History: Reports: None Respiratory History: Reports: Other (See Below) Other Respiratory History: exercise induced breathing problems Gastrointestinal History: Reports: GERD, Hiatal Hernia Genitourinary History: Reports: None 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, Musculoskeletal History: Reports: Fibromyalgia Neurological History: Reports: None Psychiatric History: Reports: None Endocrine/Metabolic History: Reports: Hyperthyroidism, Hypothyroidism, Other (See Below), Obesity/BMI 30+ Other Endocrine/Metabolic History: fuentes Hematologic History: Reports: None Immunologic History: Reports: None Oncologic (Cancer) History: Reports: None Dermatologic History: Reports: None - Infectious Disease History Infectious Disease History: Reports: Chicken Pox - Past Surgical History HEENT Surgical History: Reports: None Female Surgical History: Reports: D&C Social & Family History - Family History Family Medical History: Noncontributory Cardiac: Reports: [place] - Tobacco Use Smoking Status *Q: Never Smoker - Caffeine Use Caffeine Use: Reports: None Other Caffeine Use: rare - Recreational Drug Use Recreational Drug Use: No ED ROS GENERAL - Review of Systems Review Of Systems: Comprehensive ROS is negative, except as noted in HPI. ED EXAM, GENERAL - Physical Exam Exam: See Below EKG INTERPRETATION EKG Interpretation Comments: 60 Bpm, NSR, normal QRS interval, no STEMI. EKG and rhythm strip interpreted by me at 1342 Course - Vital Signs Last Recorded V/S: Last Vital Signs Temp 97.6 F 03/01/20 07:40 Pulse 53 L 03/01/20 07:40 Resp 17 03/01/20 07:40 BP 117/56 L 03/01/20 07:40 Pulse Ox 95 03/01/20 07:40 - Orders/Labs/Meds Labs: Laboratory Tests 02/29/20 02/29/20 02/29/20 Range/Units 14:00 14:00 14:00 WBC 8.79 (4.0-11.0) K/uL RBC 4.99 (4.30-5.90) M/uL Hgb 15.0 (12.0-16.0) g/dL Hct 42.9 (36.0-46.0) % MCV 86.0 (80.0-98.0) fL MCH 30.1 (27.0-32.0) pg MCHC 35.0 (31.0-37.0) g/dL RDW Std Deviation 39.3 (28.0-62.0) fl RDW Coeff of Jazzy 12 (11.0-15.0) % Plt Count 328 (150-400) K/uL MPV 9.30 (7.40-12.00) fL Neut % (Auto) 69.0 (48.0-80.0) % Lymph % (Auto) 22.1 (16.0-40.0) % [place] % (Auto) 7.3 (0.0-15.0) % Eos % (Auto) 0.9 (0.0-7.0) % Baso % (Auto) 0.7 (0.0-1.5) % Neut # (Auto) 6.1 H (1.4-5.7) K/uL Lymph # (Auto) 1.9 (0.6-2.4) K/uL [place] # (Auto) 0.6 (0.0-0.8) K/uL Eos # (Auto) 0.1 (0.0-0.7) K/uL Baso # (Auto) 0.1 (0.0-0.1) K/uL Nucleated RBC % 0.0 /100WBC Nucleated RBCs # 0 K/uL ESR 12 (0-19) mm/hr Sodium 139 (136-145) mmol/L Potassium 3.7 (3.5-5.1) mmol/L Chloride 102 (98-107) mmol/L Carbon Dioxide 26.6 (21.0-32.0) mmol/L BUN 8 (7.0-18.0) mg/dL Creatinine 0.9 (0.6-1.0) mg/dL Est Cr Clr Drug Dosing 71.56 mL/min Estimated GFR (MDRD) > 60.0 ml/min Glucose 88 (74-106) mg/dL Calcium 8.9 (8.5-10.1) mg/dL Phosphorus (2.6-4.7) mg/dL Magnesium (1.8-2.4) mg/dL Total Bilirubin 0.8 (0.2-1.0) mg/dL AST 24 (15-37) IU/L ALT 32 (14-63) IU/L Alkaline Phosphatase 107 (46-116) U/L Creatine Kinase (26-308) U/L Troponin I < 0.050 (0.000-0.056) ng/mL Total Protein 8.1 (6.4-8.2) g/dL Albumin 4.4 (3.4-5.0) g/dL Globulin 3.7 (2.6-4.0) g/dL Albumin/Globulin Ratio 1.2 (0.9-1.6) Free T4 (0.76-1.46) ng/dL TSH 3rd Generation (0.36-3.74) uIU/mL COVID-19 (ROSANNE) (NEGATIVE) 02/29/20 02/29/20 02/29/20 Range/Units 14:00 14:00 14:00 WBC (4.0-11.0) K/uL RBC (4.30-5.90) M/uL Hgb (12.0-16.0) g/dL Hct (36.0-46.0) % MCV (80.0-98.0) fL MCH (27.0-32.0) pg MCHC (31.0-37.0) g/dL RDW Std Deviation (28.0-62.0) fl RDW Coeff of Jazzy (11.0-15.0) % Plt Count (150-400) K/uL MPV (7.40-12.00) fL Neut % (Auto) (48.0-80.0) % Lymph % (Auto) (16.0-40.0) % [place] % (Auto) (0.0-15.0) % Eos % (Auto) (0.0-7.0) % Baso % (Auto) (0.0-1.5) % Neut # (Auto) (1.4-5.7) K/uL Lymph # (Auto) (0.6-2.4) K/uL [place] # (Auto) (0.0-0.8) K/uL Eos # (Auto) (0.0-0.7) K/uL Baso # (Auto) (0.0-0.1) K/uL Nucleated RBC % /100WBC Nucleated RBCs # K/uL ESR (0-19) mm/hr Sodium (136-145) mmol/L Potassium (3.5-5.1) mmol/L Chloride (98-107) mmol/L Carbon Dioxide (21.0-32.0) mmol/L BUN (7.0-18.0) mg/dL Creatinine (0.6-1.0) mg/dL Est Cr Clr Drug Dosing mL/min Estimated GFR (MDRD) ml/min Glucose (74-106) mg/dL Calcium (8.5-10.1) mg/dL Phosphorus 3.2 (2.6-4.7) mg/dL Magnesium 2.4 (1.8-2.4) mg/dL Total Bilirubin (0.2-1.0) mg/dL AST (15-37) IU/L ALT (14-63) IU/L Alkaline Phosphatase (46-116) U/L Creatine Kinase 62 (26-308) U/L Troponin I (0.000-0.056) ng/mL Total Protein (6.4-8.2) g/dL Albumin (3.4-5.0) g/dL Globulin (2.6-4.0) g/dL Albumin/Globulin Ratio (0.9-1.6) Free T4 1.09 (0.76-1.46) ng/dL TSH 3rd Generation 4.05 H (0.36-3.74) uIU/mL COVID-19 (ROSANNE) (NEGATIVE) 02/29/20 Range/Units 14:31 WBC (4.0-11.0) K/uL RBC (4.30-5.90) M/uL Hgb (12.0-16.0) g/dL Hct (36.0-46.0) % MCV (80.0-98.0) fL MCH (27.0-32.0) pg MCHC (31.0-37.0) g/dL RDW Std Deviation (28.0-62.0) fl RDW Coeff of Jazzy (11.0-15.0) % Plt Count (150-400) K/uL MPV (7.40-12.00) fL Neut % (Auto) (48.0-80.0) % Lymph % (Auto) (16.0-40.0) % [place] % (Auto) (0.0-15.0) % Eos % (Auto) (0.0-7.0) % Baso % (Auto) (0.0-1.5) % Neut # (Auto) (1.4-5.7) K/uL Lymph # (Auto) (0.6-2.4) K/uL [place] # (Auto) (0.0-0.8) K/uL Eos # (Auto) (0.0-0.7) K/uL Baso # (Auto) (0.0-0.1) K/uL Nucleated RBC % /100WBC Nucleated RBCs # K/uL ESR (0-19) mm/hr Sodium (136-145) mmol/L Potassium (3.5-5.1) mmol/L Chloride (98-107) mmol/L Carbon Dioxide (21.0-32.0) mmol/L BUN (7.0-18.0) mg/dL Creatinine (0.6-1.0) mg/dL Est Cr Clr Drug Dosing mL/min Estimated GFR (MDRD) ml/min Glucose (74-106) mg/dL Calcium (8.5-10.1) mg/dL Phosphorus (2.6-4.7) mg/dL Magnesium (1.8-2.4) mg/dL Total Bilirubin (0.2-1.0) mg/dL AST (15-37) IU/L ALT (14-63) IU/L Alkaline Phosphatase (46-116) U/L Creatine Kinase (26-308) U/L Troponin I (0.000-0.056) ng/mL Total Protein (6.4-8.2) g/dL Albumin (3.4-5.0) g/dL Globulin (2.6-4.0) g/dL Albumin/Globulin Ratio (0.9-1.6) Free T4 (0.76-1.46) ng/dL TSH 3rd Generation (0.36-3.74) uIU/mL COVID-19 (ROSANNE) NEGATIVE (NEGATIVE) Meds: Medications Discontinued Medications Generic Name Dose Route Start Last Admin Trade Name Freq PRN Reason Stop Dose Admin Acetaminophen 650 mg 02/29/20 17:00 Tylenol PO Q4H PRN Pain (Mild 1-3)/fever Albuterol/Ipratropium 3 ml 02/29/20 17:00 Duoneb 3.0-0.5 Mg/3 Ml NEB Q4HRRT PRN Shortness Of Breath/wheezing Doxycycline Hyclate 100 mg 02/29/20 16:30 02/29/20 17:21 Vibramycin PO 02/29/20 16:31 100 mg ONETIME ONE Administration Doxycycline Hyclate 100 mg 03/01/20 09:00 03/01/20 09:03 Vibramycin PO 100 mg Q12HR SANJAY Administration Lactated Ringer's 1,000 mls @ 125 mls/hr 02/29/20 17:15 03/01/20 03:09 Ringers, Lactated IV 125 mls/hr ASDIRECTED SANJAY Administration Sodium Chloride 10 ml 02/29/20 14:13 Saline Flush FLUSH ASDIRECTED PRN Keep Vein Open Sodium Chloride 2.5 ml 02/29/20 14:13 Saline Flush FLUSH ASDIRECTED PRN Keep Vein Open - Re-Assessments/Exams Free Text/Narrative Re-Assessment/Exam: 02/29/20 14:21 After treatments and a prolonged observation period in the ER, the patient improved clinically and is stable for discharge. I performed a repeat ex amination and the patient has not demonstrated any new abnormal findings. Patient exhibits normal vital signs and has exhibited a normal gait. I advised the patient to return to the ER for reevaluation if symptoms worsened, and to follow up with their PCP ( ) within 2-3 days. MEDICAL DECISION MAKING: I reviewed the patients past medical records, lab and radiographic findings. I discussed the case with the patient. My differential diagnosis included: Lyme carditis, early disseminated Lyme's disease, peric arditis Departure - Departure Time of Disposition: 08:40 Disposition: Refer to Observation Clinical Impression: Tachyarrhythmia - Discharge Information *PRESCRIPTION DRUG MONITORING PROGRAM REVIEWED*: Not Applicable *COPY OF PRESCRIPTION DRUG MONITORING REPORT IN PATIENT DIANN: Not Applicable Sepsis Event Note (ED) - Evaluation Sepsis Screening Result: No Definite Risk
[2020-02-29 14:40] LABS: BLOOD UREA NITROGEN,BUN 8 mg/dL (7.0-18.0); CARBON DIOXIDE,CO2 26.6 mmol/L (21.0-32.0); CHLORIDE,CL 102 mmol/L (98-107); GLUCOSE RANDOM 88 mg/dL (74-106); POTASSIUM,K 3.7 mmol/L (3.5-5.1); SODIUM,NA 139 mmol/L (136-145)
--- NOTE | 2020-02-29 14:41 | CR ---
Chest: Portable view of the chest was obtained. Comparison: Prior chest x-ray of 06/20/17. Heart size and mediastinum are normal. Lungs are clear with no acute parenchymal change. Nodular density is noted within the left hilum believed to represent vascular confluence. Bony structures show nothing acute. Mild scoliosis is noted. Impression: 1. Findings as noted above. 2. Nothing acute is identified. Diagnostic code #2 This report was dictated in MDT
[2020-02-29] MEDS ORDERED: Doxycycline 100 MG Cap PO ONE (16:30)
[2020-02-29] MEDS ORDERED: Acetaminophen 325 MG Tab PO PRN (17:00)
[2020-02-29] MEDS ORDERED: Albuterol/Ipratropium 3.0-0.5 MG/3 ML Neb Soln NEB PRN (17:00)
--- NOTE | 2020-02-29 17:10 | PCM.HP.2 ---
H&P History of Present Illness - General Date of Service: 02/29/20 Admit Problem/Dx: Admission Diagnosis/Problem Admission Diagnosis/Problem Tachyarrhythmia - History of Present Illness Initial Comments - Free Text/Narative: 49-year-old female with history of hypothyroidism and fibromyalgia presents with acute onset palpitation around noon. 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 Her Fitbit has recorded her tachycardia lasting for about 1 hour. She sattes she also felt dizzy, Diaphoretic, left-sided chest pressure. States she has been feeling malaise, diffuse myalgia for past few days. She also had one episode of diarrhea. 5 days ago she removed a tick bite from behind her left knee. She denies fever, chills, GÓMEZ, neck pain. She follows with a a construction area manager for her fibromyalgia, In the ER her lab work was unremarkable, her EKG showed NSR, troponin was negative. Patient was admitted for observation to r/o any life threatening tachyarrhythmias and ACS. general Pain Score (Numeric/FACES): 8 - Related Data Allergies/Adverse Reactions: Allergies Allergy/AdvReac Type Severity Reaction Status Date / Time tomato Allergy Severe Anaphylactic Verified 02/29/20 17:39 Shock influenza virus vaccine, Allergy Other Verified 02/29/20 17:39 specific [influenza virus vacc,specific] promethazine [From Phenergan] Allergy Seizure Verified 02/29/20 17:39 promethazine HCl Allergy Seizure Verified 02/29/20 17:39 [From Phenergan] shellfish derived Allergy Itching Verified 02/29/20 17:39 IV Contrast from years ago Allergy Intermediate Cannot Uncoded 02/29/20 17:39 Remember Home Medications: Home Meds Naltrexone 4 mg PO BEDTIME 06/20/17 [History] Past Medical History - Past Health History Medical/Surgical History: Denies Medical/Surgical History HEENT History: Reports: None Cardiovascular History: Reports: None Respiratory History: Reports: Other (See Below) Other Respiratory History: exercise induced breathing problems Gastrointestinal History: Reports: GERD, Hiatal Hernia Genitourinary History: Reports: None DISBURSEMENT CLERK History: Reports: Endometrial Ablation, Musculoskeletal History: Reports: Fibromyalgia Neurological History: Reports: None Psychiatric History: Reports: None Endocrine/Metabolic History: Reports: Hyperthyroidism, Hypothyroidism, Other (See Below), Obesity/BMI 30+ Other Endocrine/Metabolic History: fuentes Hematologic History: Reports: None Immunologic History: Reports: None Oncologic (Cancer) History: Reports: None Dermatologic History: Reports: None - Infectious Disease History Infectious Disease History: Reports: Chicken Pox - Past Surgical History HEENT Surgical History: Reports: None Female Surgical History: Reports: D&C Social & Family History - Family History Family Medical History: Noncontributory Cardiac: Reports: [place] - Tobacco Use Smoking Status *Q: Never Smoker - Caffeine Use Caffeine Use: Reports: None Other Caffeine Use: rare - Recreational Drug Use Recreational Drug Use: No H&P Review of Systems - Review of Systems: Review Of Systems: See Below General: Reports: Malaise, Weakness. Denies: Fever, Chills HEENT: Denies: Contact Lenses, Dysphasia Pulmonary: Denies: Shortness of Breath, Wheezing Cardiovascular: Reports: Palpitations, Lightheadedness. Denies: Chest Pain (resolved), Dyspnea on Exertion, Orthopnea, Edema Gastrointestinal: Denies: Abdominal Pain, Anorexia, Black Stool, Decreased Appetite, Hematemesis, Hematochezia, Nausea Genitourinary: Denies: Dysuria, Frequency Musculoskeletal: Denies: Neck Pain, Shoulder Pain Skin: Denies: Cyanosis, Jaundice, Mottled Exam - Exam Exam: See Below - Vital Signs Vital Signs: Last Vital Signs Temp 35.5 C L 02/29/20 13:51 Pulse 87 02/29/20 16:09 Resp 17 02/29/20 14:44 BP 120/59 L 02/29/20 16:09 Pulse Ox 97 02/29/20 16:09 Weight: 97.069 kg - Exam General: Alert, Oriented HEENT: Conjunctiva Clear Neck: Supple, Trachea Midline Lungs: Clear to Auscultation, Normal Respiratory Effort Cardiovascular: Regular Rate, Regular Rhythm, Normal S1, Normal S2 GI/Abdominal Exam: Normal Bowel Sounds, Soft, Non-Tender - Patient Data Lab Results Last 24 hrs: Laboratory Results - last 24 hr 02/29/20 02/29/20 02/29/20 Range/Units 14:00 14:00 14:00 WBC 8.79 (4.0-11.0) K/uL RBC 4.99 (4.30-5.90) M/uL Hgb 15.0 (12.0-16.0) g/dL Hct 42.9 (36.0-46.0) % MCV 86.0 (80.0-98.0) fL MCH 30.1 (27.0-32.0) pg MCHC 35.0 (31.0-37.0) g/dL RDW Std Deviation 39.3 (28.0-62.0) fl RDW Coeff of Jazzy 12 (11.0-15.0) % Plt Count 328 (150-400) K/uL MPV 9.30 (7.40-12.00) fL Neut % (Auto) 69.0 (48.0-80.0) % Lymph % (Auto) 22.1 (16.0-40.0) % Page % (Auto) 7.3 (0.0-15.0) % Eos % (Auto) 0.9 (0.0-7.0) % Baso % (Auto) 0.7 (0.0-1.5) % Neut # (Auto) 6.1 H (1.4-5.7) K/uL Lymph # (Auto) 1.9 (0.6-2.4) K/uL Page # (Auto) 0.6 (0.0-0.8) K/uL Eos # (Auto) 0.1 (0.0-0.7) K/uL Baso # (Auto) 0.1 (0.0-0.1) K/uL Nucleated RBC % 0.0 /100WBC Nucleated RBCs # 0 K/uL ESR 12 (0-19) mm/hr Sodium 139 (136-145) mmol/L Potassium 3.7 (3.5-5.1) mmol/L Chloride 102 (98-107) mmol/L Carbon Dioxide 26.6 (21.0-32.0) mmol/L BUN 8 (7.0-18.0) mg/dL Creatinine 0.9 (0.6-1.0) mg/dL Est Cr Clr Drug Dosing 71.56 mL/min Estimated GFR (MDRD) > 60.0 ml/min Glucose 88 (74-106) mg/dL Calcium 8.9 (8.5-10.1) mg/dL Total Bilirubin 0.8 (0.2-1.0) mg/dL AST 24 (15-37) IU/L ALT 32 (14-63) IU/L Alkaline Phosphatase 107 (46-116) U/L Creatine Kinase (26-308) U/L Troponin I < 0.050 (0.000-0.056) ng/mL Total Protein 8.1 (6.4-8.2) g/dL Albumin 4.4 (3.4-5.0) g/dL Globulin 3.7 (2.6-4.0) g/dL Albumin/Globulin Ratio 1.2 (0.9-1.6) Free T4 (0.76-1.46) ng/dL TSH 3rd Generation (0.36-3.74) uIU/mL COVID-19 (ROSANNE) (NEGATIVE) 02/29/20 02/29/20 02/29/20 Range/Units 14:00 14:00 14:31 WBC (4.0-11.0) K/uL RBC (4.30-5.90) M/uL Hgb (12.0-16.0) g/dL Hct (36.0-46.0) % MCV (80.0-98.0) fL MCH (27.0-32.0) pg MCHC (31.0-37.0) g/dL RDW Std Deviation (28.0-62.0) fl RDW Coeff of Jazzy (11.0-15.0) % Plt Count (150-400) K/uL MPV (7.40-12.00) fL Neut % (Auto) (48.0-80.0) % Lymph % (Auto) (16.0-40.0) % Page % (Auto) (0.0-15.0) % Eos % (Auto) (0.0-7.0) % Baso % (Auto) (0.0-1.5) % Neut # (Auto) (1.4-5.7) K/uL Lymph # (Auto) (0.6-2.4) K/uL Page # (Auto) (0.0-0.8) K/uL Eos # (Auto) (0.0-0.7) K/uL Baso # (Auto) (0.0-0.1) K/uL Nucleated RBC % /100WBC Nucleated RBCs # K/uL ESR (0-19) mm/hr Sodium (136-145) mmol/L Potassium (3.5-5.1) mmol/L Chloride (98-107) mmol/L Carbon Dioxide (21.0-32.0) mmol/L BUN (7.0-18.0) mg/dL Creatinine (0.6-1.0) mg/dL Est Cr Clr Drug Dosing mL/min Estimated GFR (MDRD) ml/min Glucose (74-106) mg/dL Calcium (8.5-10.1) mg/dL Total Bilirubin (0.2-1.0) mg/dL AST (15-37) IU/L ALT (14-63) IU/L Alkaline Phosphatase (46-116) U/L Creatine Kinase 62 (26-308) U/L Troponin I (0.000-0.056) ng/mL Total Protein (6.4-8.2) g/dL Albumin (3.4-5.0) g/dL Globulin (2.6-4.0) g/dL Albumin/Globulin Ratio (0.9-1.6) Free T4 1.09 (0.76-1.46) ng/dL TSH 3rd Generation 4.05 H (0.36-3.74) uIU/mL COVID-19 (ROSANNE) NEGATIVE (NEGATIVE) Result Diagrams: 02/29/20 14:00 02/29/20 14:00 Sepsis Event Note - Evaluation Sepsis Screening Result: No Definite Risk - Focused Exam Vital Signs: Vital Signs Temp Pulse Resp BP Pulse Ox 02/29/20 16:09 87 120/59 L 97 02/29/20 14:44 66 17 135/75 97 02/29/20 13:51 35.5 C L 78 18 144/86 H 100 Date Exam was Performed: 03/01/20 Time Exam was Performed: 05:32 - Problem List (1) Tachycardia with heart rate 121-140 beats per minute SNOMED Code(s): 3144752 ICD Code: R00.0 - TACHYCARDIA, UNSPECIFIED Status: Acute Current Visit: Yes (2) Dizziness SNOMED Code(s): 049895927, 226379188 ICD Code: R42 - DIZZINESS AND GIDDINESS Status: Acute Current Visit: Yes (3) Hypothyroid SNOMED Code(s): 83303432 ICD Code: E03.9 - HYPOTHYROIDISM, UNSPECIFIED Status: Acute Current V isit: Yes (4) Tick bite SNOMED Code(s): 24902206, 199934547 ICD Code: W57.XXXA - BIT/STUNG BY NONVENOM INSECT & OTH NONVENOM ARTHROPODS, INIT Status: Acute Current Visit: Yes Problem List Initiated/Reviewed/Updated: Yes Orders Last 24hrs: Active Orders 24 hr Category Date Time Status Admission Status [Patient Status] [ADT] Stat ADT 02/29/20 16:44 Active Ambulate [RC] ASDIRECTED Care 02/29/20 17:00 Ordered Antiembolic Devices [RC] PER UNIT ROUTINE Care 02/29/20 17:02 Ordered Cardiac Monitoring [RC] . DIRECTED Care 02/29/20 14:13 Active EKG 12 Lead [EKG Documentation Completion] [RC] STAT Care 02/29/20 14:15 Active Oxygen Therapy [RC] PRN Care 02/29/20 17:00 Ordered Pulse Oximetry [RC] PRN Care 02/29/20 17:01 Ordered RT Aerosol Therapy [RC] ASDIRECTED Care 02/29/20 17:02 Ordered VTE/DVT Education [RC] PER UNIT ROUTINE Care 02/29/20 17:00 Ordered Vital Signs [RC] Q4H Care 02/29/20 17:00 Ordered Regular Diet [DIET] Diet 02/29/20 Dinner Ordered LYME (B.BURGDORFERI) PCR [REF] Stat Lab 02/29/20 14:00 Received MAGNESIUM [CHEM] Routine Lab 02/29/20 17:03 Ordered PHOSPHORUS [CHEM] Routine Lab 02/29/20 17:03 Ordered TROPONIN I [CHEM] Q6H Lab 02/29/20 18:00 Ordered TROPONIN I [CHEM] Q6H Lab 03/01/20 00:00 Ordered UA W/MICROSCOPIC [URIN] Stat Lab 02/29/20 17:04 Ordered Acetaminophen [Tylenol] Med 02/29/20 17:00 Ordered 650 mg PO Q4H PRN Albuterol/Ipratropium [DuoNeb 3.0-0.5 MG/3 ML] Med 02/29/20 17:00 Ordered 3 ml NEB Q4HRRT PRN Doxycycline [Vibramycin] Med 03/01/20 09:00 Ordered 100 mg PO Q12HR Lactated Ringers @ 125 MLS/HR(1,000ml) Med 02/29/20 17:15 Ordered Lactated Ringers [Ringers, Lactated] 1,000 ml IV ASDIRECTED Sodium Chloride 0.9% [Saline Flush] Med 02/29/20 14:13 Active 10 ml FLUSH ASDIRECTED PRN Sodium Chloride 0.9% [Saline Flush] Med 02/29/20 14:13 Active 2.5 ml FLUSH ASDIRECTED PRN Saline Lock Insert [OM.PC] Stat Oth 02/29/20 14:13 Ordered Sequential Compression Device [OM.PC] Per Unit Routine Oth 02/29/20 17:01 Ordered Resuscitation Status Routine Resus Stat 02/29/20 17:00 Ordered Medication Orders Acetaminophen (Tylenol) 650 mg PO Q4H PRN PRN Reason: Pain (Mild 1-3)/fever Albuterol/Ipratropium (Duoneb 3.0-0.5 Mg/3 Ml) 3 ml NEB Q4HRRT PRN PRN Reason: Shortness Of Breath/wheezing Doxycycline Hyclate (Vibramycin) 100 mg PO Q12HR SANJAY Lactated Ringer's (Ringers, Lactated) 1,000 mls @ 125 mls/hr IV ASDIRECTED SANJAY Sodium Chloride (Saline Flush) 10 ml FLUSH ASDIRECTED PRN PRN Reason: Keep Vein Open Sodium Chloride (Saline Flush) 2.5 ml FLUSH ASDIRECTED PRN PRN Reason: Keep Vein Open Assessment/Plan Comment:: 49 y/o F admitted for ACS rule out, Symptoms could be due to vasovagal response Admit to observation/tele Trend troponin*3 TSH and T3 noted Check Lipid panel, HbA1c Vitals q4H ambulate as directed Noted to be slightly hypertensive, but states her BP is usually on lower side, Will cont to monitor Monitor and replete electrolytes Possible dc on Zio patch for prolonged monitoring Given h/o tick bite, with malasie, Lymes pnal ewas ordered, f/u on results Cont doxycycline
[2020-02-29] MEDS: Lactated Ringers 1,000 ML IV SCH (18:10)
[2020-02-29 19:00] LABS: HEMOGLOBIN A1C 5.2 % (4.5-6.2)
[2020-03-01] MEDS: Lactated Ringers 1,000 ML IV SCH (03:09)
[2020-03-01 07:58] VITALS: BP 117/56; PULSE 53
--- NOTE | 2020-03-01 08:58 | PCM.DCSUM1 ---
Discharge Summary - Hospital Course HPI Initial Comments: 49-year-old female with history of hypothyroidism and fibromyalgia presents with acute onset palpitation around noon. 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 Her Fitbit has recorded her tachycardia lasting for about 1 hour. She sattes she also felt dizzy, Diaphoretic, left-sided chest pressure. States she has been feeling malaise, diffuse myalgia for past few days. She also had one episode of diarrhea. 5 days ago she removed a tick bite from behind her left knee. She denies fever, chills, GÓMEZ, neck pain. She follows with a a soa engineer for her fibromyalgia, In the ER her lab work was unremarkable, her EKG showed NSR, tropo fransisca was negative. Patient was admitted for observation to r/o any life threatening tachyarrhythmias and ACS. Patients tele overnight didnt know any tachyarrhythmias, only showed rare PACs and PVS, troponin x 3 were negative. Lymes panel was sent out, results pending. Patient was medially stable next day. Patient was discharged with zio patch and 14 days of doxycycline for possible lymes and recommended to fu with her pcp upon dc. - Discharge Data Discharge Date: 03/01/20 Discharge Disposition: Home, Self-Care 01 Condition: Good - Referral to Home Health Primary Care Physician: René Crawford MD - Discharge Diagnosis/Problem(s) (1) Tachycardia with heart rate 121-140 beats per minute SNOMED Code(s): 7273796 ICD Code: R00.0 - TACHYCARDIA, UNSPECIFIED Status: Acute (2) Dizziness SNOMED Code(s): 427941004, 493308525 ICD Code: R42 - DIZZINESS AND GIDDINESS Status: Acute (3) Hypothyroid SNOMED Code(s): 39840921 ICD Code: E03.9 - HYPOTHYROIDISM, UNSPECIFIED Status: Acute (4) Tick bite SNOMED Code(s): 36007718, 147827948 ICD Code: W57.XXXA - BIT/STUNG BY NONVENOM INSECT & OTH NONVENOM ARTHROPODS, INIT Status: Acute - Patient Instructions Diet: Regular Diet as Tolerated Activity: As Tolerated Driving: May Drive Today Showering/Bathing: May Shower Notify Provider of: Fever, Increased Pain, Swelling and Redness, Drainage, Nausea and/or Vomiting - Discharge Plan *PRESCRIPTION DRUG MONITORING PROGRAM REVIEWED*: No *COPY OF PRESCRIPTION DRUG MONITORING REPORT IN PATIENT DIANN: No Prescriptions/Med Rec: Doxycycline [Vibramycin] 100 mg PO Q12HR 14 Days #28 cap Home Medications: Home Meds Naltrexone 4 mg PO BEDTIME 06/20/17 [History] Doxycycline [Vibramycin] 100 mg PO Q12HR 14 Days #28 cap 03/01/20 [Rx] Patient Handouts: Tick Bite Information, Adult, Doxycycline tablets or capsules, Ventricular Tachycardia Referrals: [facility] [Outside] René Crawford MD [Primary Care Provider] - (the appointment was unable to be made, due to it being the weekend. On Tuesday call the clinic to make a hospital follow-up. ) - Discharge Summary/Plan Comment DC Time >30 min.: No - Patient Data Vitals - Most Recent: Last Vital Signs Temp 36.4 C 03/01/20 07:40 Pulse 53 L 03/01/20 07:40 Resp 17 03/01/20 07:40 BP 117/56 L 03/01/20 07:40 Pulse Ox 95 03/01/20 07:40 Weight - Most Recent: 97.069 kg I&O - Last 24 hours: Intake & Output 02/29/20 03/01/20 03/01/20 22:59 06:59 14:59 Intake Total 1386 Output Total 500 Balance 886 Lab Results - Last 24 hrs: Laboratory Results - last 24 hr 02/29/20 02/29/20 02/29/20 Range/Units 14:00 14:00 14:00 WBC 8.79 (4.0-11.0) K/uL RBC 4.99 (4.30-5.90) M/uL Hgb 15.0 (12.0-16.0) g/dL Hct 42.9 (36.0-46.0) % MCV 86.0 (80.0-98.0) fL MCH 30.1 (27.0-32.0) pg MCHC 35.0 (31.0-37.0) g/dL RDW Std Deviation 39.3 (28.0-62.0) fl RDW Coeff of Jazzy 12 (11.0-15.0) % Plt Count 328 (150-400) K/uL MPV 9.30 (7.40-12.00) fL Neut % (Auto) 69.0 (48.0-80.0) % Lymph % (Auto) 22.1 (16.0-40.0) % Pratt % (Auto) 7.3 (0.0-15.0) % Eos % (Auto) 0.9 (0.0-7.0) % Baso % (Auto) 0.7 (0.0-1.5) % Neut # (Auto) 6.1 H (1.4-5.7) K/uL Lymph # (Auto) 1.9 (0.6-2.4) K/uL Pratt # (Auto) 0.6 (0.0-0.8) K/uL Eos # (Auto) 0.1 (0.0-0.7) K/uL Baso # (Auto) 0.1 (0.0-0.1) K/uL Nucleated RBC % 0.0 /100WBC Nucleated RBCs # 0 K/uL ESR 12 (0-19) mm/hr Sodium 139 (136-145) mmol/L Potassium 3.7 (3.5-5.1) mmol/L Chloride 102 (98-107) mmol/L Carbon Dioxide 26.6 (21.0-32.0) mmol/L BUN 8 (7.0-18.0) mg/dL Creatinine 0.9 (0.6-1.0) mg/dL Est Cr Clr Drug Dosing 71.56 mL/min Estimated GFR (MDRD) > 60.0 ml/min Glucose 88 (74-106) mg/dL Hemoglobin A1c (4.5-6.2) % Calcium 8.9 (8.5-10.1) mg/dL Phosphorus (2.6-4.7) mg/dL Magnesium (1.8-2.4) mg/dL Total Bilirubin 0.8 (0.2-1.0) mg/dL AST 24 (15-37) IU/L ALT 32 (14-63) IU/L Alkaline Phosphatase 107 (46-116) U/L Creatine Kinase (26-308) U/L Troponin I < 0.050 (0.000-0.056) ng/mL Total Protein 8.1 (6.4-8.2) g/dL Albumin 4.4 (3.4-5.0) g/dL Globulin 3.7 (2.6-4.0) g/dL Albumin/Globulin Ratio 1.2 (0.9-1.6) Triglycerides (0-200) mg/dL Cholesterol (50-200) mg/dL LDL Cholesterol, Calc (60-180) mg/dL VLDL Cholesterol (5-55) mg/dL HDL Cholesterol (40-60) mg/dL Cholesterol/HDL Ratio (3.3-6.0) Free T4 (0.76-1.46) ng/dL TSH 3rd Generation (0.36-3.74) uIU/mL Urine Color Urine Appearance Urine pH (5.0-8.0) Ur Specific [place] (1.001-1.035) Urine Protein (NEGATIVE) mg/dL Urine Glucose (UA) (NEGATIVE) mg/dL Urine Ketones (NEGATIVE) mg/dL Urine Occult Blood (NEGATIVE) Urine Nitrite (NEGATIVE) Urine Bilirubin (NEGATIVE) Urine Urobilinogen (<2.0) EU/dL Ur Leukocyte Esterase (NEGATIVE) Urine RBC (0-2/HPF) Urine WBC (0-5/HPF) Ur Epithelial Cells (NONE-FEW) Urine Bacteria (NEGATIVE) COVID-19 (ROSANNE) (NEGATIVE) 02/29/20 02/29/20 02/29/20 Range/Units 14:00 14:00 14:00 WBC (4.0-11.0) K/uL RBC (4.30-5.90) M/uL Hgb (12.0-16.0) g/dL Hct (36.0-46.0) % MCV (80.0-98.0) fL MCH (27.0-32.0) pg MCHC (31.0-37.0) g/dL RDW Std Deviation (28.0-62.0) fl RDW Coeff of Jazzy (11.0-15.0) % Plt Count (150-400) K/uL MPV (7.40-12.00) fL Neut % (Auto) (48.0-80.0) % Lymph % (Auto) (16.0-40.0) % Pratt % (Auto) (0.0-15.0) % Eos % (Auto) (0.0-7.0) % Baso % (Auto) (0.0-1.5) % Neut # (Auto) (1.4-5.7) K/uL Lymph # (Auto) (0.6-2.4) K/uL Pratt # (Auto) (0.0-0.8) K/uL Eos # (Auto) (0.0-0.7) K/uL Baso # (Auto) (0.0-0.1) K/uL Nucleated RBC % /100WBC Nucleated RBCs # K/uL ESR (0-19) mm/hr Sodium (136-145) mmol/L Potassium (3.5-5.1) mmol/L Chloride (98-107) mmol/L Carbon Dioxide (21.0-32.0) mmol/L BUN (7.0-18.0) mg/dL Creatinine (0.6-1.0) mg/dL Est Cr Clr Drug Dosing mL/min Estimated GFR (MDRD) ml/min Glucose (74-106) mg/dL Hemoglobin A1c (4.5-6.2) % Calcium (8.5-10.1) mg/dL Phosphorus 3.2 (2.6-4.7) mg/dL Magnesium 2.4 (1.8-2.4) mg/dL Total Bilirubin (0.2-1.0) mg/dL AST (15-37) IU/L ALT (14-63) IU/L Alkaline Phosphatase (46-116) U/L Creatine Kinase 62 (26-308) U/L Troponin I (0.000-0.056) ng/mL Total Protein (6.4-8.2) g/dL Albumin (3.4-5.0) g/dL Globulin (2.6-4.0) g/dL Albumin/Globulin Ratio (0.9-1.6) Triglycerides (0-200) mg/dL Cholesterol (50-200) mg/dL LDL Cholesterol, Calc (60-180) mg/dL VLDL Cholesterol (5-55) mg/dL HDL Cholesterol (40-60) mg/dL Cholesterol/HDL Ratio (3.3-6.0) Free T4 1.09 (0.76-1.46) ng/dL TSH 3rd Generation 4.05 H (0.36-3.74) uIU/mL Urine Color Urine Appearance Urine pH (5.0-8.0) Ur Specific [place] (1.001-1.035) Urine Protein (NEGATIVE) mg/dL Urine Glucose (UA) (NEGATIVE) mg/dL Urine Ketones (NEGATIVE) mg/dL Urine Occult Blood (NEGATIVE) Urine Nitrite (NEGATIVE) Urine Bilirubin (NEGATIVE) Urine Urobilinogen (<2.0) EU/dL Ur Leukocyte Esterase (NEGATIVE) Urine RBC (0-2/HPF) Urine WBC (0-5/HPF) Ur Epithelial Cells (NONE-FEW) Urine Bacteria (NEGATIVE) COVID-19 (ROSANNE) (NEGATIVE) 02/29/20 02/29/20 02/29/20 Range/Units 14:31 17:21 17:59 WBC (4.0-11.0) K/uL RBC (4.30-5.90) M/uL Hgb (12.0-16.0) g/dL Hct (36.0-46.0) % MCV (80.0-98.0) fL MCH (27.0-32.0) pg MCHC (31.0-37.0) g/dL RDW Std Deviation (28.0-62.0) fl RDW Coeff of Jazzy (11.0-15.0) % Plt Count (150-400) K/uL MPV (7.40-12.00) fL Neut % (Auto) (48.0-80.0) % Lymph % (Auto) (16.0-40.0) % Pratt % (Auto) (0.0-15.0) % Eos % (Auto) (0.0-7.0) % Baso % (Auto) (0.0-1.5) % Neut # (Auto) (1.4-5.7) K/uL Lymph # (Auto) (0.6-2.4) K/uL Pratt # (Auto) (0.0-0.8) K/uL Eos # (Auto) (0.0-0.7) K/uL Baso # (Auto) (0.0-0.1) K/uL Nucleated RBC % /100WBC Nucleated RBCs # K/uL ESR (0-19) mm/hr Sodium (136-145) mmol/L Potassium (3.5-5.1) mmol/L Chloride (98-107) mmol/L Carbon Dioxide (21.0-32.0) mmol/L BUN (7.0-18.0) mg/dL Creatinine (0.6-1.0) mg/dL Est Cr Clr Drug Dosing mL/min Estimated GFR (MDRD) ml/min Glucose (74-106) mg/dL Hemoglobin A1c (4.5-6.2) % Calcium (8.5-10.1) mg/dL Phosphorus (2.6-4.7) mg/dL Magnesium (1.8-2.4) mg/dL Total Bilirubin (0.2-1.0) mg/dL AST (15-37) IU/L ALT (14-63) IU/L Alkaline Phosphatase (46-116) U/L Creatine Kinase (26-308) U/L Troponin I < 0.050 (0.000-0.056) ng/mL Total Protein (6.4-8.2) g/dL Albumin (3.4-5.0) g/dL Globulin (2.6-4.0) g/dL Albumin/Globulin Ratio (0.9-1.6) Triglycerides (0-200) mg/dL Cholesterol (50-200) mg/dL LDL Cholesterol, Calc (60-180) mg/dL VLDL Cholesterol (5-55) mg/dL HDL Cholesterol (40-60) mg/dL Cholesterol/HDL Ratio (3.3-6.0) Free T4 (0.76-1.46) ng/dL TSH 3rd Generation (0.36-3.74) uIU/mL Urine Color YELLOW Urine Appearance CLEAR Urine pH 8.0 (5.0-8.0) Ur Specific [place] 1.015 (1.001-1.035) Urine Protein NEGATIVE (NEGATIVE) mg/dL Urine Glucose (UA) NEGATIVE (NEGATIVE) mg/dL Urine Ketones NEGATIVE (NEGATIVE) mg/dL Urine Occult Blood TRACE-INTACT H (NEGATIVE) Urine Nitrite NEGATIVE (NEGATIVE) Urine Bilirubin NEGATIVE (NEGATIVE) Urine Urobilinogen 0.2 (<2.0) EU/dL Ur Leukocyte Esterase SMALL H (NEGATIVE) Urine RBC 1-2 (0-2/HPF) Urine WBC 1-2 (0-5/HPF) Ur Epithelial Cells RARE (NONE-FEW) Urine Bacteria RARE (NEGATIVE) COVID-19 (ROSANNE) NEGATIVE (NEGATIVE) 02/29/20 03/01/20 03/01/20 Range/Units 18:41 00:14 05:22 WBC (4.0-11.0) K/uL RBC (4.30-5.90) M/uL Hgb (12.0-16.0) g/dL Hct (36.0-46.0) % MCV (80.0-98.0) fL MCH (27.0-32.0) pg MCHC (31.0-37.0) g/dL RDW Std Deviation (28.0-62.0) fl RDW Coeff of Jazzy (11.0-15.0) % Plt Count (150-400) K/uL MPV (7.40-12.00) fL Neut % (Auto) (48.0-80.0) % Lymph % (Auto) (16.0-40.0) % Pratt % (Auto) (0.0-15.0) % Eos % (Auto) (0.0-7.0) % Baso % (Auto) (0.0-1.5) % Neut # (Auto) (1.4-5.7) K/uL Lymph # (Auto) (0.6-2.4) K/uL Pratt # (Auto) (0.0-0.8) K/uL Eos # (Auto) (0.0-0.7) K/uL Baso # (Auto) (0.0-0.1) K/uL Nucleated RBC % /100WBC Nucleated RBCs # K/uL ESR (0-19) mm/hr Sodium (136-145) mmol/L Potassium (3.5-5.1) mmol/L Chloride (98-107) mmol/L Carbon Dioxide (21.0-32.0) mmol/L BUN (7.0-18.0) mg/dL Creatinine (0.6-1.0) mg/dL Est Cr Clr Drug Dosing mL/min Estimated GFR (MDRD) ml/min Glucose (74-106) mg/dL Hemoglobin A1c 5.2 (4.5-6.2) % Calcium (8.5-10.1) mg/dL Phosphorus (2.6-4.7) mg/dL Magnesium (1.8-2.4) mg/dL Total Bilirubin (0.2-1.0) mg/dL AST (15-37) IU/L ALT (14-63) IU/L Alkaline Phosphatase (46-116) U/L Creatine Kinase (26-308) U/L Troponin I < 0.050 (0.000-0.056) ng/mL Total Protein (6.4-8.2) g/dL Albumin (3.4-5.0) g/dL Globulin (2.6-4.0) g/dL Albumin/Globulin Ratio (0.9-1.6) Triglycerides 61 (0-200) mg/dL Cholesterol 171 (50-200) mg/dL LDL Cholesterol, Calc 98 (60-180) mg/dL VLDL Cholesterol 12 (5-55) mg/dL HDL Cholesterol 61 H (40-60) mg/dL Cholesterol/HDL Ratio 2.8 L (3.3-6.0) Free T4 (0.76-1.46) ng/dL TSH 3rd Generation (0.36-3.74) uIU/mL Urine Color Urine Appearance Urine pH (5.0-8.0) Ur Specific [place] (1.001-1.035) Urine Protein (NEGATIVE) mg/dL Urine Glucose (UA) (NEGATIVE) mg/dL Urine Ketones (NEGATIVE) mg/dL Urine Occult Blood (NEGATIVE) Urine Nitrite (NEGATIVE) Urine Bilirubin (NEGATIVE) Urine Urobilinogen (<2.0) EU/dL Ur Leukocyte Esterase (NEGATIVE) Urine RBC (0-2/HPF) Urine WBC (0-5/HPF) Ur Epithelial Cells (NONE-FEW) Urine Bacteria (NEGATIVE) COVID-19 ([facility]ANNE) (NEGATIVE) Med Orders - Current: Current Medications Acetaminophen (Tylenol) 650 mg PO Q4H PRN PRN Reason: Pain (Mild 1-3)/fever Albuterol/Ipratropium (Duoneb 3.0-0.5 Mg/3 Ml) 3 ml NEB Q4HRRT PRN PRN Reason: Shortness Of Breath/wheezing Doxycycline Hyclate (Vibramycin) 100 mg PO Q12HR SANJAY Lactated Ringer's (Ringers, Lactated) 1,000 mls @ 125 mls/hr IV ASDIRECTED SANJAY Last Admin: 03/01/20 03:09 Dose: 125 mls/hr Documented by: Sodium Chloride (Saline Flush) 10 ml FLUSH ASDIRECTED PRN PRN Reason: Keep Vein Open Sodium Chloride (Saline Flush) 2.5 ml FLUSH ASDIRECTED PRN PRN Reason: Keep Vein Open Discontinued Medications Doxycycline Hyclate (Vibramycin) 100 mg PO ONETIME ONE Stop: 02/29/20 16:31 Last Admin: 02/29/20 17:21 Dose: 100 mg Documented by:
[2020-03-01] MEDS ORDERED: Doxycycline 100 MG Cap PO SCH (09:00)
== END 2020-03-01 10:15 | disposition home or self-care (01) ==
LOC: MW.ED 13:03 → MW.MS 16:44
PROVIDERS: ADMIT Student in an Organized Health Care Education/Training Program; ATTEND Student in an Organized Health Care Education/Training Program
DX: R00.0 Tachycardia, unspecified (principal); R42 Dizziness and giddiness; E03.9 Hypothyroidism, unspecified; M79.7 Fibromyalgia; K21.9 Gastro-esophageal reflux disease without esophagitis; E66.9 Obesity, unspecified; Z20.828 Contact with and (suspected) exposure to other viral communicable diseases; Z88.8 Allergy status to other drugs, medicaments and biological substances; Z91.018 Allergy to other foods; Z91.013 Allergy to seafood; Z91.041 Radiographic dye allergy status; Z79.899 Other long term (current) drug therapy; W57.XXXA Bitten or stung by nonvenomous insect and other nonvenomous arthropods, initial encounter; Z68.34 Body mass index [BMI] 34.0-34.9, adult; Z88.7 Allergy status to serum and vaccine
CPT/HCPCS: 36415; 71045; 80053; 80061; 81001; 82550; 83036; 83735; 84100; 84439; 84443; 84484; 85025; 85652; 87086; 87476; 87635; 93005; 96360; 96361; 99285; A9270; G0378; J7120; 99284; U0002

== ENCOUNTER 2021-05-15 05:59 | Emergency (ER) | payer BC ==
--- NOTE | 2021-05-15 06:42 | EDM.PDOC ---
<Frankie Hunt - Last Filed: 05/15/21 06:40> ED HPI GENERAL MEDICAL PROBLEM - General Chief Complaint: General Stated Complaint: CHEST PAIN, ABDOMINAL PAIN Time Seen by Provider: 05/15/21 06:39 Source of Information: Reports: Patient History Limitations: Reports: No Limitations Abdomen Pain Score (Numeric/FACES): 8 - Related Data Allergies Allergy/AdvReac Type Severity Reaction Status Date / Time tomato Allergy Severe Anaphylactic Verified 05/15/21 06:15 Shock influenza virus vaccine, Allergy Other Verified 05/15/21 06:15 specific [influenza virus vacc,specific] promethazine [From Phenergan] Allergy Seizure Verified 05/15/21 06:15 promethazine HCl Allergy Seizure Verified 05/15/21 06:15 [From Phenergan] shellfish derived Allergy Itching Verified 05/15/21 06:15 IV Contrast from years ago Allergy Intermediate Cannot Uncoded 05/15/21 06:15 Remember Home Meds: Home Meds . [No Known Home Meds] 05/15/21 [History] Past Medical History - Past Health History Medical/Surgical History: Denies Medical/Surgical History HEENT History: Reports: None Cardiovascular History: Reports: None Respiratory History: Reports: Other (See Below) Other Respiratory History: exercise induced breathing problems Gastrointestinal History: Reports: GERD, Hiatal Hernia Genitourinary History: Reports: None SWITCH COUPLER History: Reports: Endometrial Ablation, Musculoskeletal History: Reports: Fibromyalgia Neurological History: Reports: None Psychiatric History: Reports: None Endocrine/Metabolic History: Reports: Hyperthyroidism, Hypothyroidism, Other (See Below), Obesity/BMI 30+ Other Endocrine/Metabolic History: fuentes Hematologic History: Reports: None Immunologic History: Reports: None Oncologic (Cancer) History: Reports: None Dermatologic History: Reports: None - Infectious Disease History Infectious Disease History: Reports: Chicken Pox - Past Surgical History HEENT Surgical History: Reports: None GI Surgical History: Reports: Cholecystectomy Female Surgical History: Reports: D&C Social & Family History - Family History Family Medical History: No Pertinent Family History Cardiac: Reports: CT - Tobacco Use Second Hand Smoke Exposure: No - Caffeine Use Caffeine Use: Reports: None Other Caffeine Use: rare - Recreational Drug Use Recreational Drug Use: No Departure - Departure Disposition: Home, Self-Care 01 Clinical Impression: Viral syndrome - Discharge Information Instructions: Viral Illness, Adult Referrals: PCP,None [Primary Care Provider] - Forms: ED Department Discharge Additional Instructions: [id number] medications for symptoms are advised. [facility] - Primary Care [address] [place] [address] [facility] [address] [place] [address] The following information is given to patients seen in the emergency department who are being discharged to home. This information is to outline your options for follow-up care. We provide all patients seen in our emergency department with a follow-up referral. The need for follow-up, as well as the timing and circumstances, are variable depending upon the specifics of your emergency department visit. If you don't have a primary care physician on staff, we will provide you with a referral. We always advise you to contact your personal physician following an emergency department visit to inform them of the circumstance of the visit and for follow-up with them and/or the need for any referrals to a consulting specialist. The emergency department will also refer you to a specialist when appropriate. This referral assures that you have the opportunity for follow-up care with a specialist. All of these measure are taken in an effort to provide you with opt imal care, which includes your follow-up. Under all circumstances we always encourage you to contact your private physician who remains a resource for coordinating your care. When calling for follow-up care, please make the office aware that this follow-up is from your recent emergency room visit. If for any reason you are refused follow-up, please contact the [facility] Emergency Department at and asked to speak to the emergency department charge nurse. Sepsis Event Note (ED) - Evaluation Sepsis Screening Result: No Definite Risk <Christiano Perdomo - Last Filed: 05/15/21 08:31> ED HPI GENERAL MEDICAL PROBLEM - History of Present Illness INITIAL COMMENTS - FREE TEXT/NARRATIVE: History of present illness: [] Patient reports chest tightness and abdominal pain. She has nausea and ch ills. She has this for 2 days. She has a cough since Labor Day for April of this year. Her doctor says it is acid reflux. She has her bed positioned up she does not eat before dinner she does not eat hot peppers and she does not drink alcohol. She takes Prilosec. She still has a cough which her doctor describes to acid reflux. It bothers her every day. For 2 days she feels blocked, no appetite, aches all over and has a headache. She is vaccinated by [employer] 1 dose for COVID-19. The patient abdominal pain and chest pressure are just part of the complete body soreness she reports but the abdominal pain and chest pressure becoming a little worse today. The patient does not smoke or drink alcohol. The patient is being seen during a pandemic of COVID-19 and hospitals under COVID-19 response protocols. Review of systems: As per history of present illness and below otherwise all systems reviewed and negative. Past medical history: As per history of present illness and as reviewed below otherwise noncontributory. Surgical history: As per history of present illness and as reviewed below otherwise noncontributory. Social history: No reported history of drug or alcohol abuse. Family history: As per history of present illness and as reviewed below otherwise noncontributory. Physical exam: Constitutional - well developed, well-nourished and in no acute distress HEENT - normocephalic, no evidence of trauma - external nose and mouth normal - no mass in neck and no JVD - mucosae moist EYES - full EOM, PERRL, no icterus - no evidence of inflammation, injection, or drainage Respiratory - no respiratory distress, equal bilateral expansion, lungs clear to auscultation and no abnormal lung sounds Cardiovascular - Regular Rhythm with S1 and S2 appreciated and no murmur, gallop or rub. GI -tender in the right upper quadrant no referred tenderness no guarding rebound-abdomen soft without distension or organomegaly - normal bowel sounds - no guard or rebound Musculoskeletal no gross deformity of long bones or joints - no tenderness, swelling or edema Neurologic - Alert and oriented times four - CN II-XII grossly intact - motor sensory and coordination symmetrically normal Psychiatric - appropriate mood and affect with normal thought content Hematologic - No petechiae or purpura - mucosa appropriate color and sclera not pale - normal nail bed color and refill Integument - no rash or evidence of trauma - normal turgor Diagnostics: [] Therapeutics: [] Impression: [] Plan: [] Definitive disposition and diagnosis as appropriate pending reevaluation and review of above. ED ROS GENERAL - Review of Systems Review Of Systems: Comprehensive ROS is negative, except as noted in HPI. ED EXAM, GENERAL - Physical Exam Exam: See Below Free Text/Narrative:: My physical exam is in the HPI #1 Interpretation EKG Interpretation Comments: EKG performed 05/15/2021 at 5:59 AM sinus rhythm heart rate 88 OR 167 QT duration 403 axis 41 borderline T wave abnormalities compared to 02/29/2020 no change impression no acute injury Course - Vital Signs Text/Narrative:: 7:52 AM the patient still has a headache and feels dehydrated. Her labs are unremarkable. She has most likely viral syndrome and there is no evidence of hepatitis, biliary tree obstruction, ureteral obstruction. Patient will be given symptomatic treatment and a liter of fluids and reassess for possible discharge. Last Recorded V/S: Last Vital Signs Temp 37.6 C 05/15/21 06:12 Pulse 96 05/15/21 07:42 Resp 18 05/15/21 07:42 BP 135/86 05/15/21 07:42 Pulse Ox 95 05/15/21 07:42 - Orders/Labs/Meds Orders: Active Orders 24 hr Category Date Time Status Cardiac Monitoring [RC] . DIRECTED Care 05/15/21 06:40 Active CULTURE URINE [MREF] Stat Lab 05/15/21 07:08 Stop Req Sodium Chloride 0.9% [Normal Saline] 1,000 ml Med 05/15/21 07:51 Active IV .Bolus Pulse Oximetry Continuous Monitoring [OM.PC] CONTINUOUS Oth 05/15/21 06:45 Ordered Medication Orders Sodium Chloride (Normal Saline) 1,000 mls @ 1,000 mls/hr IV .Bolus ONE Stop: 05/15/21 08:50 Last Admin: 05/15/21 07:59 Dose: 1,000 mls/hr Documented by: FLOWER Labs: Laboratory Tests 05/15/21 05/15/21 05/15/21 Range/Units 06:10 06:10 06:10 WBC 5.70 (4.0-11.0) K/uL RBC 4.96 (4.30-5.90) M/uL Hgb 14.7 (12.0-16.0) g/dL Hct 42.4 (36.0-46.0) % MCV 85.5 (80.0-98.0) fL MCH 29.6 (27.0-32.0) pg MCHC 34.7 (31.0-37.0) g/dL RDW Std Deviation 38.8 (28.0-62.0) fl RDW Coeff of Jazzy 13 (11.0-15.0) % Plt Count 266 (150-400) K/uL MPV 9.60 (7.40-12.00) fL Neut % (Auto) 68.0 (48.0-80.0) % Lymph % (Auto) 14.2 L (16.0-40.0) % [place] % (Auto) 15.6 H (0.0-15.0) % Eos % (Auto) 1.1 (0.0-7.0) % Baso % (Auto) 1.1 (0.0-1.5) % Neut # (Auto) 3.9 (1.4-5.7) K/uL Lymph # (Auto) 0.8 (0.6-2.4) K/uL [place] # (Auto) 0.9 H (0.0-0.8) K/uL Eos # (Auto) 0.1 (0.0-0.7) K/uL Baso # (Auto) 0.1 (0.0-0.1) K/uL Nucleated RBC % 0.0 /100WBC Nucleated RBCs # 0 K/uL Sodium 138 (136-145) mmol/L Potassium 4.1 (3.5-5.1) mmol/L Chloride 101 (98-107) mmol/L Carbon Dioxide 24.5 (21.0-32.0) mmol/L BUN 5 L (7.0-18.0) mg/dL Creatinine 0.8 (0.6-1.0) mg/dL Est Cr Clr Drug Dosing 79.63 mL/min Estimated GFR (MDRD) > 60.0 ml/min Glucose 115 H (74-106) mg/dL Calcium 9.1 (8.5-10.1) mg/dL Total Bilirubin 0.5 (0.2-1.0) mg/dL AST 28 (15-37) IU/L ALT 40 (14-63) IU/L Alkaline Phosphatase 116 (46-116) U/L Troponin I < 0.050 (0.000-0.056) ng/mL Total Protein 7.4 (6.4-8.2) g/dL Albumin 4.0 (3.4-5.0) g/dL Globulin 3.4 (2.6-4.0) g/dL Albumin/Globulin Ratio 1.2 (0.9-1.6) Lipase (73-393) U/L Urine Color Urine Appearance Urine pH (5.0-8.0) Ur Specific Rankin (1.001-1.035) Urine Protein (NEGATIVE) mg/dL Urine Glucose (UA) (NEGATIVE) mg/dL Urine Ketones (NEGATIVE) mg/dL Urine Occult Blood (NEGATIVE) Urine Nitrite (NEGATIVE) Urine Bilirubin (NEGATIVE) Urine Urobilinogen (<2.0) EU/dL Ur Leukocyte Esterase (NEGATIVE) Urine RBC (0-2/HPF) Urine WBC (0-5/HPF) Ur Epithelial Cells (NONE-FEW) Urine Bacteria (NEGATIVE) Urine HCG, Qual (NEGATIVE) SARS-CoV-2 RNA (ROSANNE) (NEGATIVE) 05/15/21 05/15/21 05/15/21 Range/Units 06:10 06:45 07:08 WBC (4.0-11.0) K/uL RBC (4.30-5.90) M/uL Hgb (12.0-16.0) g/dL Hct (36.0-46.0) % MCV (80.0-98.0) fL MCH (27.0-32.0) pg MCHC (31.0-37.0) g/dL RDW Std Deviation (28.0-62.0) fl RDW Coeff of Jazzy (11.0-15.0) % Plt Count (150-400) K/uL MPV (7.40-12.00) fL Neut % (Auto) (48.0-80.0) % Lymph % (Auto) (16.0-40.0) % [place] % (Auto) (0.0-15.0) % Eos % (Auto) (0.0-7.0) % Baso % (Auto) (0.0-1.5) % Neut # (Auto) (1.4-5.7) K/uL Lymph # (Auto) (0.6-2.4) K/uL [place] # (Auto) (0.0-0.8) K/uL Eos # (Auto) (0.0-0.7) K/uL Baso # (Auto) (0.0-0.1) K/uL Nucleated RBC % /100WBC Nucleated RBCs # K/uL Sodium (136-145) mmol/L Potassium (3.5-5.1) mmol/L Chloride (98-107) mmol/L Carbon Dioxide (21.0-32.0) mmol/L BUN (7.0-18.0) mg/dL Creatinine (0.6-1.0) mg/dL Est Cr Clr Drug Dosing mL/min Estimated GFR (MDRD) ml/min Glucose (74-106) mg/dL Calcium (8.5-10.1) mg/dL Total Bilirubin (0.2-1.0) mg/dL AST (15-37) IU/L ALT (14-63) IU/L Alkaline Phosphatase (46-116) U/L Troponin I (0.000-0.056) ng/mL Total Protein (6.4-8.2) g/dL Albumin (3.4-5.0) g/dL Globulin (2.6-4.0) g/dL Albumin/Globulin Ratio (0.9-1.6) Lipase 96 (73-393) U/L Urine Color YELLOW Urine Appearance CLEAR Urine pH 7.5 (5.0-8.0) Ur Specific Rankin 1.025 (1.001-1.035) Urine Protein NEGATIVE (NEGATIVE) mg/dL Urine Glucose (UA) NEGATIVE (NEGATIVE) mg/dL Urine Ketones NEGATIVE (NEGATIVE) mg/dL Urine Occult Blood NEGATIVE (NEGATIVE) Urine Nitrite NEGATIVE (NEGATIVE) Urine Bilirubin NEGATIVE (NEGATIVE) Urine Urobilinogen 0.2 (<2.0) EU/dL Ur Leukocyte Esterase TRACE H (NEGATIVE) Urine RBC 0-2 (0-2/HPF) Urine WBC 0-3 (0-5/HPF) Ur Epithelial Cells MODERATE (NONE-FEW) Urine Bacteria FEW (NEGATIVE) Urine HCG, Qual (NEGATIVE) SARS-CoV-2 RNA (ROSANNE) NEGATIVE (NEGATIVE) 10/08/21 Range/Units 07:08 WBC (4.0-11.0) K/uL RBC (4.30-5.90) M/uL Hgb (12.0-16.0) g/dL Hct (36.0-46.0) % MCV (80.0-98.0) fL MCH (27.0-32.0) pg MCHC (31.0-37.0) g/dL RDW Std Deviation (28.0-62.0) fl RDW Coeff of Jazzy (11.0-15.0) % Plt Count (150-400) K/uL MPV (7.40-12.00) fL Neut % (Auto) (48.0-80.0) % Lymph % (Auto) (16.0-40.0) % [place] % (Auto) (0.0-15.0) % Eos % (Auto) (0.0-7.0) % Baso % (Auto) (0.0-1.5) % Neut # (Auto) (1.4-5.7) K/uL Lymph # (Auto) (0.6-2.4) K/uL [place] # (Auto) (0.0-0.8) K/uL Eos # (Auto) (0.0-0.7) K/uL Baso # (Auto) (0.0-0.1) K/uL Nucleated RBC % /100WBC Nucleated RBCs # K/uL Sodium (136-145) mmol/L Potassium (3.5-5.1) mmol/L Chloride (98-107) mmol/L Carbon Dioxide (21.0-32.0) mmol/L BUN (7.0-18.0) mg/dL Creatinine (0.6-1.0) mg/dL Est Cr Clr Drug Dosing mL/min Estimated GFR (MDRD) ml/min Glucose (74-106) mg/dL Calcium (8.5-10.1) mg/dL Total Bilirubin (0.2-1.0) mg/dL AST (15-37) IU/L ALT (14-63) IU/L Alkaline Phosphatase (46-116) U/L Troponin I (0.000-0.056) ng/mL Total Protein (6.4-8.2) g/dL Albumin (3.4-5.0) g/dL Globulin (2.6-4.0) g/dL Albumin/Globulin Ratio (0.9-1.6) Lipase (73-393) U/L Urine Color Urine Appearance Urine pH (5.0-8.0) Ur Specific Rankin (1.001-1.035) Urine Protein (NEGATIVE) mg/dL Urine Glucose (UA) (NEGATIVE) mg/dL Urine Ketones (NEGATIVE) mg/dL Urine Occult Blood (NEGATIVE) Urine Nitrite (NEGATIVE) Urine Bilirubin (NEGATIVE) Urine Urobilinogen (<2.0) EU/dL Ur Leukocyte Esterase (NEGATIVE) Urine RBC (0-2/HPF) Urine WBC (0-5/HPF) Ur Epithelial Cells (NONE-FEW) Urine Bacteria (NEGATIVE) Urine HCG, Qual NEGATIVE (NEGATIVE) SARS-CoV-2 RNA (ROSANNE) (NEGATIVE) Meds: Medications Generic Name Dose Route Start Last Admin Trade Name Freq PRN Reason Stop Dose Admin Sodium Chloride 1,000 mls @ 1,000 mls/hr 05/15/21 07:51 05/15/21 07:59 Normal Saline IV 05/15/21 08:50 1,000 mls/hr .Bolus ONE Administration Discontinued Medications Generic Name Dose Route Start Last Admin Trade Name Freq PRN Reason Stop Dose Admin Ketorolac Tromethamine 15 mg 05/15/21 07:51 05/15/21 08:00 Ketorolac 30 Mg/Ml Sdv IVPUSH 05/15/21 07:52 15 mg ONETIME ONE Administration Departure - Departure Time of Disposition: 09:00 Condition: Good Sepsis Event Note (ED) - Focused Exam Vital Signs: Vital Signs Temp Pulse Resp BP Pulse Ox 05/15/21 07:42 96 18 135/86 95 05/15/21 06:50 91 20 123/67 97 05/15/21 06:12 37.6 C 88 20 149/80 H 94 L - My Orders Last 24 Hours: My Active Orders 05/15/21 07:51 Sodium Chloride 0.9% [Normal Saline] 1,000 ml IV .Bolus - Assessment/Plan Last 24 Hours: My Active Orders 05/15/21 07:51 Sodium Chloride 0.9% [Normal Saline] 1,000 ml IV .Bolus
[2021-05-15 06:46] LABS: BLOOD UREA NITROGEN,BUN 5 mg/dL (7.0-18.0); CARBON DIOXIDE,CO2 24.5 mmol/L (21.0-32.0); CHLORIDE,CL 101 mmol/L (98-107); GLUCOSE RANDOM 115 mg/dL (74-106); POTASSIUM,K 4.1 mmol/L (3.5-5.1); SODIUM,NA 138 mmol/L (136-145)
--- NOTE | 2021-05-15 07:19 | CR ---
INDICATION: Chest pain. TECHNIQUE: Chest 1 view. COMPARISON: Chest radiograph 02/29/2020. FINDINGS: No focal consolidation, pleural effusion, or pneumothorax. Normal heart size and pulmonary vascularity. The bones are unremarkable. IMPRESSION: No acute cardiopulmonary findings. Dictated by Johanny Navarro MD @ 05/15/2021 7:17:09 AM (Electronically Signed)
[2021-05-15] MEDS ORDERED: Sodium Chloride 0.9% 1,000 ML IV ONE (07:51)
[2021-05-15] MEDS ORDERED: Ketorolac 30 MG/ML SDV IVPUSH ONE (07:51)
[2021-05-15 08:49] VITALS: BP 138/75; PULSE 91
== END 2021-05-15 08:49 | disposition home or self-care (01) ==
LOC: MW.ED 05:59
DX: B34.9 Viral infection, unspecified (principal); Z91.018 Allergy to other foods; Z88.7 Allergy status to serum and vaccine; Z88.8 Allergy status to other drugs, medicaments and biological substances; Z91.013 Allergy to seafood; Z91.041 Radiographic dye allergy status; Z20.822 Contact with and (suspected) exposure to COVID-19
CPT/HCPCS: 36415; 71045; 80053; 81001; 81025; 83690; 84484; 85025; 87086; 87635; 93005; 96374; 99285; J1885; J7030; U0002

== ENCOUNTER 2022-08-10 22:02 | Emergency (ER) | payer BC ==
[2022-08-10 22:29] VITALS: BP 165/78; PULSE 71
[2022-08-10 22:45] LABS: CARBON DIOXIDE,CO2 26.7 mmol/L (21.0-32.0); POTASSIUM,K 3.8 mmol/L (3.5-5.1)
[2022-08-10] MEDS ORDERED: Alum Hydro/Mag Hydro/Simeth XS 15 ML, Lidocaine 2% 5 ML PO ONE ×2 (23:11)
== END 2022-08-11 01:15 | disposition home or self-care (01) ==
LOC: MW.ED 22:02
DX: R07.89 Other chest pain (principal); K21.9 Gastro-esophageal reflux disease without esophagitis; E03.9 Hypothyroidism, unspecified; Z88.7 Allergy status to serum and vaccine; Z91.018 Allergy to other foods; Z91.041 Radiographic dye allergy status; Z88.8 Allergy status to other drugs, medicaments and biological substances; Z79.899 Other long term (current) drug therapy
CPT/HCPCS: 36415; 71045; 80053; 83880; 84484; 85025; 93005; 99285; A9270

== ENCOUNTER 2022-10-29 06:38 | Emergency (ER) | payer BC ==
[2022-10-29] MEDS ORDERED: Sodium Chloride 0.9% 2,000 ML IV ONE (07:30)
[2022-10-29] MEDS ORDERED: Ondansetron 4 MG/2 ML SDV IVPUSH ONE ×2 (07:31→11:23)
[2022-10-29 07:36] LABS: CARBON DIOXIDE,CO2 22.2 mmol/L (21.0-32.0); POTASSIUM,K 3.9 mmol/L (3.5-5.1)
[2022-10-29 09:03] LABS: CORONAVIRUS COVID-19 NAA NEGATIVE (NEGATIVE); INFLUENZA A NAA NEGATIVE (NEGATIVE); INFLUENZA B NAA NEGATIVE (NEGATIVE); RESPIRATORY SYNCYTIAL VIR NAA NEGATIVE (NEGATIVE)
[2022-10-29] MEDS ORDERED: Lactated Ringers 1,000 ML IV ONE (09:51)
[2022-10-29 11:11] VITALS: BP 120/73; PULSE 69
== END 2022-10-29 11:41 | disposition home or self-care (01) ==
LOC: MW.ED 06:38
DX: K52.9 Noninfective gastroenteritis and colitis, unspecified (principal); E03.9 Hypothyroidism, unspecified; Z88.7 Allergy status to serum and vaccine; Z91.018 Allergy to other foods; Z88.8 Allergy status to other drugs, medicaments and biological substances; Z91.013 Allergy to seafood; Z91.041 Radiographic dye allergy status; Z79.899 Other long term (current) drug therapy; Z20.822 Contact with and (suspected) exposure to COVID-19
CPT/HCPCS: 0241U; 36415; 74176; 80053; 81001; 83690; 85025; 96361; 96374; 96376; 99284; J2405; J7030; J7120; 99283